=== PATIENT | female | born 1955 | race American Indian/Alaskan Native ===

== ENCOUNTER 2018-01-02 22:15 | Inpatient (IN) | payer MEDICAID ==
--- NOTE | 2018-01-02 22:43 | Cat Scan Report ---
FINAL REPORT PROCEDURE: CT HEAD/BRAIN WO CON TECHNIQUE: Computerized tomography of the head was performed without contrast material. HISTORY: CVA COMPARISON: No prior studies are available for comparison. FINDINGS: Skull and scalp: Normal. Paranasal sinuses: Normal. Ventricles and subarachnoid spaces: Normal. Cerebrum: Ill-defined hypodense lesions measuring about 1 centimeter are noted involving the anterior limbs of bilateral internal capsules. An acute intra-axial or extra-axial hemorrhage is not identified.. Cerebellum and brainstem: No evidence of hemorrhage, acute infarction or mass. Vasculature: Atherosclerotic calcification is noted involving bilateral vertebral and internal carotid arteries.. Comments: None. IMPRESSION: No acute intracranial hemorrhage. Ill-defined hypodense lesions of bilateral anterior limb internal capsules most likely represent subacute versus chronic infarcts.
[2018-01-02 23:05] LABS: Basophils # (Auto) 0.1 K/mm3 (0.0-0.1); Basophils % (Auto) 0.9 % (0.0-1.8); Eosinophils % (Auto) 0.3 % (0.0-4.3); Hematocrit 42.6 % (30.3-42.9); Hemoglobin 13.5 gm/dl (10.1-14.3); Lymphocytes # (Auto) 1.6 K/mm3 (1.2-5.4); Mean Corpuscular HGB Conc 32 % (30-34); Mean Corpuscular Hemoglobin 25 pg (28-32); Mean Corpuscular Volume 78 fl (79-97); Monocytes # (Auto) 0.4 K/mm3 (0.0-0.8); Monocytes % (Auto) 6.7 % (0.0-7.3); Platelet Count 275 K/mm3 (140-440); Red Blood Count 5.46 M/mm3 (3.65-5.03); Red Cell Distribution Width 16.8 % (13.2-15.2)
[2018-01-02 23:09] LABS: INR 0.97 (0.87-1.13)
[2018-01-02 23:10] LABS: Partial Thromboplastin Time 29.5 Sec. (24.2-36.6); Thrombin Time 16.5 Sec. (15.1-19.6)
[2018-01-02 23:18] LABS: Alanine Aminotransferase 12 units/L (7-56); Albumin 3.7 g/dL (3.9-5); BUN/Creatinine Ratio 13; Blood Urea Nitrogen 12 mg/dL (7-17); Hemolysis Index 0
[2018-01-03] LABS: Bilirubin,Urine NEG (Negative); Blood,Urine NEG (Negative); Color,Urine Yellow (Yellow); Nitrite,Urine NEG (Negative); Protein,Urine <15 mg/dL mg/dL (Negative); WBC,Urine < 1.0 /HPF (0.0-6.0)
[2018-01-03 00:10] LABS: Amphetamine Screen,Urine PRESUMPTIVE NEGATIVE; Benzodiazepines Screen,Urine PRESUMPTIVE NEGATIVE; Cannabinoid Screen,Urine PRESUMPTIVE NEGATIVE; Cocaine Screen,Urine PRESUMPTIVE NEGATIVE; Methadone Screen,Urine PRESUMPTIVE NEGATIVE; Opiate Screen,Urine PRESUMPTIVE NEGATIVE
[2018-01-03] MEDS ORDERED: NACL ONE (00:14)
--- NOTE | 2018-01-03 00:28 | Emergency Department Report ---
ED Altered Mental Status HPI - General Chief Complaint: Altered Mental Status Stated Complaint: POSS CVA Time Seen by Provider: 01/02/18 22:47 Source: patient, family, EMS Mode of arrival: Ambulatory Limitations: No Limitations - History of Present Illness Initial Comments: 62-year-old female history of hypertension and tobacco abuse family member states that she was noted to be last normal at about 1 PM today when he called her; when he returned home approximately 9 PM she was unable to respond his questions she was awake and alert but did have aphasia with difficulty getting responding, he called 911 patient was brought to the ED as a stroke protocol patient her last known normal time was 1 PM she presented at the ED at 2245. pt was sent to ct on stroke protocol on arrival. MD Complaint: altered mental status, confusion, other (poss cva) Severity: mild Consistency of Symptoms: unknown Associated Symptoms: diaphoresis, weakness. denies: chest pain, cough, malaise , nausea/vomiting, rash, seizure, shortness of breath, syncope - Related Data Home Medications Medication Instructions Recorded Confirmed Last Taken No Known Home Medications [No 01/02/18 01/02/18 Unknown Reported Home Medications] Allergies Allergy/AdvReac Type Severity Reaction Status Date / Time No Known Allergies Allergy Unverified 01/02/18 22:23 ED Review of Systems ROS: Stated complaint: POSS CVA Other details as noted in HPI Comment: All other systems reviewed and negative Constitutional: no symptoms reported, weakness. denies: chills, diaphoresis, fever Respiratory: no symptoms reported. denies: orthopnea, shortness of breath, SOB with exertion, SOB at rest, stridor, wheezing Cardiovascular: denies: chest pain, palpitations, dyspnea on exertion, orthopnea , edema, syncope, paroxysmal nocturnal dyspnea Gastrointestinal: denies: abdominal pain, nausea, vomiting, diarrhea, constipation, hematemesis, melena, hematochezia Neurological: weakness, confusion, other (aphasia, confusion). denies: headache ED Past Medical Hx - Medications Home Medications: Home Medications Medication Instructions Recorded Confirmed Last Taken Type No Known Home Medications [No 01/02/18 01/02/18 Unknown History Reported Home Medications] ED Physical Exam - General Limitations: No Limitations General appearance: alert, other (eyes open alert protecting airway receptive and expressive aphasia) - Head Head exam: Present: atraumatic, normocephalic - Eye Eye exam: Present: PERRL, other (uncooperative with exam) - ENT ENT exam: Present: normal exam, normal orophraynx - Neck Neck exam: Present: normal inspection. Absent: tenderness, meningismus, lymphadenopathy, thyromegaly - Respiratory Respiratory exam: Present: normal lung sounds bilaterally. Absent: respiratory distress, wheezes, rales, rhonchi, stridor, chest wall tenderness, accessory muscle use, decreased breath sounds, prolonged expiratory - Cardiovascular Cardiovascular Exam: Present: regular rate, tachycardia. Absent: systolic murmur, diastolic murmur, rubs, gallop - GI/Abdominal GI/Abdominal exam: Present: soft. Absent: distended, tenderness, guarding, rebound, rigid, mass, bruit, pulsatile mass - Extremities Exam Extremities exam: Absent: pedal edema, joint swelling, calf tenderness - Back Exam Back exam: Absent: CVA tenderness (L), muscle spasm, paraspinal tenderness, vertebral tenderness - Neurological Exam Neurological exam: Present: alert, motor sensory deficit, other (patient is verbal and not following commands expressive and receptive aphasia) - Assessment Assessment Interval: Baseline - Level of Consciousness 1a. Level of Consciousness: alert - LOC Questions 1b. LOC Questions: answers no questions correctly - LOC Command 1c. LOC Commands: performs no tasks correctly - Best Gaze 2. Best Gaze: normal - Visual 3. Visual: no visual loss - Facial Palsy 4. Facial Palsy: minor paralysis - Motor Arm 5b. Motor Arm Right: no drift 5a. Motor Arm Left: no drift - Motor Leg 6a. Motor Leg Left: no drift 6b. Motor Leg Right: no drift - Limb Ataxia 7. Limb Ataxia: present 1 limb - Sensory 8. Sensory: mild/moderate sensory loss - Best Language 9. Best Language: mild/moderate aphasia - Dysarthria 10. Dysarthria: mild/moderate dysarthria - Extinction and Inattention 11. Extinction/Inattention: profound inattention - Scoring Total Score: 11 Stroke Severity: Moderate Stroke ED Course Vital Signs 01/02/18 01/02/18 01/03/18 23:03 23:08 00:14 Temperature 98.3 F Pulse Rate 92 H 85 82 Respiratory 18 20 20 Rate Blood Pressure 171/106 126/88 [Left] O2 Sat by Pulse 98 96 98 Oximetry - Lab Data Result diagrams: 01/02/18 22:45 01/02/18 22:45 Lab Results 01/02/18 01/02/18 01/02/18 Range/Units 22:45 22:45 22:45 WBC 6.6 (4.5-11.0) K/mm3 RBC 5.46 H (3.65-5.03) M/mm3 Hgb 13.5 (10.1-14.3) gm/dl Hct 42.6 (30.3-42.9) % MCV 78 L (79-97) fl MCH 25 L (28-32) pg MCHC 32 (30-34) % RDW 16.8 H (13.2-15.2) % Plt Count 275 (140-440) K/mm3 Lymph % (Auto) 24.0 (13.4-35.0) % [place] % (Auto) 6.7 (0.0-7.3) % Eos % (Auto) 0.3 (0.0-4.3) % Baso % (Auto) 0.9 (0.0-1.8) % Lymph # 1.6 (1.2-5.4) K/mm3 [place]elia # 0.4 (0.0-0.8) K/mm3 Eos # 0.0 (0.0-0.4) K/mm3 Baso # 0.1 (0.0-0.1) K/mm3 Seg Neutrophils % 68.1 (40.0-70.0) % Seg Neutrophils # 4.5 (1.8-7.7) K/mm3 PT 13.4 (12.2-14.9) Sec. INR 0.97 (0.87-1.13) APTT 29.5 (24.2-36.6) Sec. Thrombin Time 16.5 (15.1-19.6) Sec. Sodium 138 (137-145) mmol/L Potassium 4.1 (3.6-5.0) mmol/L Chloride 99.1 (98-107) mmol/L Carbon Dioxide 24 (22-30) mmol/L Anion Gap 19 mmol/L BUN 12 (7-17) mg/dL Creatinine 0.9 (0.7-1.2) mg/dL Estimated GFR > 60 ml/min BUN/Creatinine Ratio 13 % Glucose 107 H (65-100) mg/dL Calcium 9.0 (8.4-10.2) mg/dL Total Bilirubin 0.30 (0.1-1.2) mg/dL AST 16 (5-40) units/L ALT 12 (7-56) units/L Alkaline Phosphatase 74 (35-129) units/L Troponin T < 0.010 (0.00-0.029) ng/mL Total Protein 7.4 (6.3-8.2) g/dL Albumin 3.7 L (3.9-5) g/dL Albumin/Globulin Ratio 1.0 % Urine Color (Yellow) Urine Turbidity (Clear) Urine pH (5.0-7.0) Ur Specific [place] (1.003-1.030) Urine Protein (Negative) mg/dL Urine Glucose (UA) (Negative) mg/dL Urine Ketones (Negative) mg/dL Urine Blood (Negative) Urine Nitrite (Negative) Urine Bilirubin (Negative) Urine Urobilinogen (<2.0) mg/dL Ur Leukocyte Esterase (Negative) Urine WBC (Auto) (0.0-6.0) /HPF Urine RBC (Auto) (0.0-6.0) /HPF U Epithel Cells (Auto) (0-13.0) /HPF Urine Opiates Screen Urine Methadone Screen Ur Barbiturates Screen Ur Phencyclidine Scrn Ur Amphetamines Screen U Benzodiazepines Scrn Urine Cocaine Screen U Marijuana (THC) Screen 01/02/18 01/02/18 Range/Units 22:59 22:59 WBC (4.5-11.0) K/mm3 RBC (3.65-5.03) M/mm3 Hgb (10.1-14.3) gm/dl Hct (30.3-42.9) % MCV (79-97) fl MCH (28-32) pg MCHC (30-34) % RDW (13.2-15.2) % Plt Count (140-440) K/mm3 Lymph % (Auto) (13.4-35.0) % [place] % (Auto) (0.0-7.3) % Eos % (Auto) (0.0-4.3) % Baso % (Auto) (0.0-1.8) % Lymph # (1.2-5.4) K/mm3 [place]elia # (0.0-0.8) K/mm3 Eos # (0.0-0.4) K/mm3 Baso # (0.0-0.1) K/mm3 Seg Neutrophils % (40.0-70.0) % Seg Neutrophils # (1.8-7.7) K/mm3 PT (12.2-14.9) Sec. INR (0.87-1.13) APTT (24.2-36.6) Sec. Thrombin Time (15.1-19.6) Sec. Sodium (137-145) mmol/L Potassium (3.6-5.0) mmol/L Chloride (98-107) mmol/L Carbon Dioxide (22-30) mmol/L Anion Gap mmol/L BUN (7-17) mg/dL Creatinine (0.7-1.2) mg/dL Estimated GFR ml/min BUN/Creatinine Ratio % Glucose (65-100) mg/dL Calcium (8.4-10.2) mg/dL Total Bilirubin (0.1-1.2) mg/dL AST (5-40) units/L ALT (7-56) units/L Alkaline Phosphatase (35-129) units/L Troponin T (0.00-0.029) ng/mL Total Protein (6.3-8.2) g/dL Albumin (3.9-5) g/dL Albumin/Globulin Ratio % Urine Color Yellow (Yellow) Urine Turbidity Clear (Clear) Urine pH 7.0 (5.0-7.0) Ur Specific [place] 1.013 (1.003-1.030) Urine Protein <15 mg/dl (Negative) mg/dL Urine Glucose (UA) Neg (Negative) mg/dL Urine Ketones Neg (Negative) mg/dL Urine Blood Neg (Negative) Urine Nitrite Neg (Negative) Urine Bilirubin Neg (Negative) Urine Urobilinogen 4.0 (<2.0) mg/dL Ur Leukocyte Esterase Neg (Negative) Urine WBC (Auto) < 1.0 (0.0-6.0) /HPF Urine RBC (Auto) 2.0 (0.0-6.0) /HPF U Epithel Cells (Auto) < 1.0 (0-13.0) /HPF Urine Opiates Screen Presumptive negative Urine Methadone Screen Presumptive negative Ur Barbiturates Screen Presumptive negative Ur Phencyclidine Scrn Presumptive negative Ur Amphetamines Screen Presumptive negative U Benzodiazepines Scrn Presumptive negative Urine Cocaine Screen Presumptive negative U Marijuana (THC) Screen Presumptive negative - EKG Data -: EKG Interpreted by Me EKG shows normal: sinus rhythm When compared to previous EKG there are: previous EKG unavailable Interpretation: nonspecific ST-T wave belen, other (right bundle-branch block) - Radiology Data Radiology results: report reviewed Subacute versus chronic change in internal capsule - Medical Decision Making No old EKGs are available patient does have a sinus tach at 105 with a right bundle branch block., case was d/w dr armando of tele neurology who rec no rx for elev bp unless sbp>200, she rec. cta head/neck and admit. ssx are c/w tia/ cva, ? if sx are improving in ed, ct shows likely infarct to internal capsule, case d/w hospitalist for admit. pt will likely need transfer to interventionalist if any blockages noted on cta and hospitalist aware.who will admit pt for further eval or possible transfer to [place] if blockages present.pt is protecting her airway w/ nl pox and is alert but confused adn aphasic. - Differential Diagnosis cva,tia Critical care attestation.: If time is entered above; I have spent that time in minutes in the direct care of this critically ill patient, excluding procedure time. ED Disposition Clinical Impression: Aphasia, CVA (cerebral vascular accident) Disposition: -09 OP ADMIT IP TO THIS HOSP Is pt being admited?: Yes Condition: Stable Referrals: HERBER BAIRD MD [Primary Care Provider] - 3-5 Days Time of Disposition: 00:50
--- NOTE | 2018-01-03 01:26 | Cat Scan Report ---
FINAL REPORT EXAM: CT ANGIO HEAD HISTORY: stroke sx TECHNIQUE: A CT angiogram was obtained of the brain following the intravenous injection of 100 cc of Omnipaque 350. Rotational, sagittal and coronal MIP reconstructions were reviewed FINDINGS: In the posterior circulation both vertebral arteries are widely patent along with the basilar artery. Both posterior cerebral arteries are widely patent. They region 8 off of the anterior circulation compatible with origin. In the anterior circulation both internal carotid arteries are widely patent with normal bifurcation into the anterior and middle cerebral arteries bilaterally. There is no evidence of arterial stenosis, thrombosis, or aneurysm. The dural venous sinuses are not adequately seen for evaluation. IMPRESSION: Normal CT angiogram of the brain. No evidence of arterial stenosis, thrombosis, or aneurysm.
--- NOTE | 2018-01-03 05:43 | History and Physical Report ---
History of Present Illness Date of examination: 01/03/18 Chief complaint: altered mental status, confusion, other (poss cva) History of present illness: 62-year-old female history of hypertension and tobacco abuse family member states that she was noted to be last normal at about 1 PM today when he called her; when he returned home approximately 9 PM she was unable to respond his questions she was awake and alert but did have aphasia with difficulty getting responding, he called 911 patient was brought to the ED as a stroke protocol patient her last known normal time was 1 PM she presented at the ED at 2245. pt was sent to ct on stroke protocol on arrival. Medications and Allergies Allergies Allergy/AdvReac Type Severity Reaction Status Date / Time No Known Allergies Allergy Verified 01/03/18 01:57 Home Medications Medication Instructions Recorded Confirmed Last Taken Type No Known Home Medications [No 01/02/18 01/02/18 Unknown History Reported Home Medications] Exam - Physical Exam Narrative exam: General: the patient is somnolent but arousable very confused talking bed not answering questions appropriately following simple commands but not consistently. no evidence of acute distress HEENT: Head is atraumatic normocephalic,. Pupils equal round reactive to light and accommodation, extraocular movements intact. Oral mucosa moist. Oropharynx clear. No pharyngeal erythema or tonsillar exudate. Neck: Supple no JVD no thyromegaly or lymphadenopathy. Heart: Regular rate and rhythm no murmurs or gallops. S1 and S2 normal. PMI not displaced. Lungs: Clear to auscultation bilaterally. No rales rhonchi wheezing. Nonlabored breathing. Normal chest wall expansion. Abdomen: Soft, nondistended, and nontender. Normoactive bowel sounds. No hepatosplenomegaly. No abdominal masses or bruit appreciated. Extremities: No cyanosis/clubbing/ edema. Musculoskeletal: Normal range of movement all joints. No obvious deformity or tenderness to palpation. Normal muscle tone. Back: Normal alignment. No step-off. No midline or paraspinal tenderness. No CVA tenderness. Neurological: Grossly intact and nonfocal. Limited exam due to altered mental status but appears to be grossly intact and nonfocal moving all 4 extremities equally bilaterally. No cerebellar signs. Cranial nerves II-12 grossly intact. Strength 5 out of 5 all 4 extremities. Sensations grossly intact. Skin: Warm and dry no rashes or bruises. Psychiatric: Normal mood. Appropriate affect and good insight and judgment. Vascular system: No lymphadenopathy. Distal pulses 2+ bilaterally. - Constitutional Vitals: Temp Pulse Resp BP Pulse Ox 98.3 F 77 25 H 134/82 93 01/02/18 23:08 01/03/18 04:00 01/03/18 04:00 01/03/18 04:00 01/03/18 04:00 Results - Labs CBC & Chem 7: 01/02/18 22:45 01/02/18 22:45 Labs: Laboratory Last Values WBC 6.6 K/mm3 (4.5-11.0) 01/02/18 22:45 RBC 5.46 M/mm3 (3.65-5.03) H 01/02/18 22:45 Hgb 13.5 gm/dl (10.1-14.3) 01/02/18 22:45 Hct 42.6 % (30.3-42.9) 01/02/18 22:45 MCV 78 fl (79-97) L 01/02/18 22:45 MCH 25 pg (28-32) L 01/02/18 22:45 MCHC 32 % (30-34) 01/02/18 22:45 RDW 16.8 % (13.2-15.2) H 01/02/18 22:45 Plt Count 275 K/mm3 (140-440) 01/02/18 22:45 Lymph % (Auto) 24.0 % (13.4-35.0) 01/02/18 22:45 [place] % (Auto) 6.7 % (0.0-7.3) 01/02/18 22:45 Eos % (Auto) 0.3 % (0.0-4.3) 01/02/18 22:45 Baso % (Auto) 0.9 % (0.0-1.8) 01/02/18 22:45 Lymph # 1.6 K/mm3 (1.2-5.4) 01/02/18 22:45 [place] # 0.4 K/mm3 (0.0-0.8) 01/02/18 22:45 Eos # 0.0 K/mm3 (0.0-0.4) 01/02/18 22:45 Baso # 0.1 K/mm3 (0.0-0.1) 01/02/18 22:45 Seg Neutrophils % 68.1 % (40.0-70.0) 01/02/18 22:45 Seg Neutrophils # 4.5 K/mm3 (1.8-7.7) 01/02/18 22:45 PT 13.4 Sec. (12.2-14.9) 01/02/18 22:45 INR 0.97 (0.87-1.13) 01/02/18 22:45 APTT 29.5 Sec. (24.2-36.6) 01/02/18 22:45 Thrombin Time 16.5 Sec. (15.1-19.6) 01/02/18 22:45 Sodium 138 mmol/L (137-145) 01/02/18 22:45 Potassium 4.1 mmol/L (3.6-5.0) 01/02/18 22:45 Chloride 99.1 mmol/L (98-107) 01/02/18 22:45 Carbon Dioxide 24 mmol/L (22-30) 01/02/18 22:45 Anion Gap 19 mmol/L 01/02/18 22:45 BUN 12 mg/dL (7-17) 01/02/18 22:45 Creatinine 0.9 mg/dL (0.7-1.2) 01/02/18 22:45 Estimated GFR > 60 ml/min 01/02/18 22:45 BUN/Creatinine Ratio 13 % 01/02/18 22:45 Glucose 107 mg/dL (65-100) H 01/02/18 22:45 Calcium 9.0 mg/dL (8.4-10.2) 01/02/18 22:45 Total Bilirubin 0.30 mg/dL (0.1-1.2) 01/02/18 22:45 AST 16 units/L (5-40) 01/02/18 22:45 ALT 12 units/L (7-56) 01/02/18 22:45 Alkaline Phosphatase 74 units/L (35-129) 01/02/18 22:45 Troponin T < 0.010 ng/mL (0.00-0.029) 01/02/18 22:45 Total Protein 7.4 g/dL (6.3-8.2) 01/02/18 22:45 Albumin 3.7 g/dL (3.9-5) L 01/02/18 22:45 Albumin/Globulin Ratio 1.0 % 01/02/18 22:45 Urine Color Yellow (Yellow) 01/02/18 22:59 Urine Turbidity Clear (Clear) 01/02/18 22:59 Urine pH 7.0 (5.0-7.0) 01/02/18 22:59 Ur Specific [place] 1.013 (1.003-1.030) 01/02/18 22:59 Urine Protein <15 mg/dl mg/dL (Negative) 01/02/18 22:59 Urine Glucose (UA) Neg mg/dL (Negative) 01/02/18 22:59 Urine Ketones Neg mg/dL (Negative) 01/02/18 22:59 Urine Blood Neg (Negative) 01/02/18 22:59 Urine Nitrite Neg (Negative) 01/02/18 22:59 Urine Bilirubin Neg (Negative) 01/02/18 22:59 Urine Urobilinogen 4.0 mg/dL (<2.0) 01/02/18 22:59 Ur Leukocyte Esterase Neg (Negative) 01/02/18 22:59 Urine WBC (Auto) < 1.0 /HPF (0.0-6.0) 01/02/18 22:59 Urine RBC (Auto) 2.0 /HPF (0.0-6.0) 01/02/18 22:59 U Epithel Cells (Auto) < 1.0 /HPF (0-13.0) 01/02/18 22:59 Urine Opiates Screen Presumptive negative 01/02/18 22:59 Urine Methadone Screen Presumptive negative 01/02/18 22:59 Ur Barbiturates Screen Presumptive negative 01/02/18 22:59 Ur Phencyclidine Scrn Presumptive negative 01/02/18 22:59 Ur Amphetamines Screen Presumptive negative 01/02/18 22:59 U Benzodiazepines Scrn Presumptive negative 01/02/18 22:59 Urine Cocaine Screen Presumptive negative 01/02/18 22:59 U Marijuana (THC) Screen Presumptive negative 01/02/18 22:59 Drugs of Abuse Note Disclamer 01/02/18 22:59 - Imaging and Cardiology Imaging and Cardiology: Head CT without contrast showing ill-defined hypodense lesions measuring about 1 cm involving the anterior limbs of bilateral internal capsules. But under the impression there is no acute intracranial hemorrhage CTA head and neck showing normal CT angiogram of the brain no evidence of arterial stenosis thrombosis or aneurysm Assessment and Plan Assessment and plan: Assessment and plan - * Altered mental status confusion * Slurred speech - possible TIA versus CVA * Abnormal CT head showing abnormal areas but negative CTA of the head and neck * Hypertension * Tobacco abuse Plan - Admitted to medical floor with telemetry for 24-hour observation MRI of the brain Carotid ultrasound Echocardiogram Aspirin 325 mg daily Optimal blood pressure control, continue home meds and give when necessary hydralazine Monitor CBC and electrolytes Replace electrolytes. As per protocol DVT GI prophylaxis as ordered Monitor and follow the patient closely
[2018-01-03] MEDS ORDERED: TYLENOL PO PRN (05:45)
[2018-01-03] MEDS ORDERED: DULCOLAX PR PRN (05:45)
[2018-01-03] MEDS ORDERED: PROVENTIL IH PRN (05:45)
[2018-01-03] MEDS ORDERED: SODIUM CHLORIDE FLUSH SYRINGE 10 ML IV PRN (05:45)
[2018-01-03] MEDS ORDERED: MILK OF MAGNESIA PO PRN (05:45)
[2018-01-03] MEDS ORDERED: APRESOLINE IV PRN (05:45)
[2018-01-03] MEDS ORDERED: ZOFRAN IV PRN (05:45)
[2018-01-03] MEDS ORDERED: MORPHINE IV PRN (06:01)
[2018-01-03 06:34] LABS: Basophils % (Auto) 0.7 % (0.0-1.8); Eosinophils % (Auto) 0.8 % (0.0-4.3); Hemoglobin 12.8 gm/dl (10.1-14.3); Lymphocytes # (Auto) 1.4 K/mm3 (1.2-5.4); Lymphocytes % (Auto) 26.6 % (13.4-35.0); Mean Corpuscular HGB Conc 32 % (30-34); Mean Corpuscular Volume 77 fl (79-97); Monocytes # (Auto) 0.5 K/mm3 (0.0-0.8); Monocytes % (Auto) 9.6 % (0.0-7.3); Platelet Count 252 K/mm3 (140-440); Red Blood Count 5.18 M/mm3 (3.65-5.03); Red Cell Distribution Width 16.7 % (13.2-15.2)
[2018-01-03 06:39] LABS: Mean Corpuscular Hemoglobin 25 pg (28-32)
[2018-01-03 06:49] LABS: Alanine Aminotransferase 10 units/L (7-56); Albumin 3.5 g/dL (3.9-5); BUN/Creatinine Ratio 14; Blood Urea Nitrogen 11 mg/dL (7-17); Calcium 8.8 mg/dL (8.4-10.2); Chol/HDL Ratio 4.85 %; HDL Cholesterol 40 mg/dL (40-59); Hemolysis Index 7; LDL Cholesterol,Direct 130 mg/dL (50-130)
[2018-01-03 06:56] LABS: INR 0.98 (0.87-1.13)
[2018-01-03 06:57] LABS: Partial Thromboplastin Time 29.7 Sec. (24.2-36.6)
--- NOTE | 2018-01-03 07:34 | Cat Scan Report ---
FINAL REPORT EXAM: CT ANGIO NECK HISTORY: stroke sx TECHNIQUE: A CT angiogram was performed of the neck following the intravenous injection of 100 cc of Omnipaque 350. Rotational, sagittal and coronal reconstructions were obtained. FINDINGS: Both vertebral arteries are widely patent with the left being dominant. There is no evidence of ostial stenosis at the origin of the vertebral arteries coming off the subclavian arteries. Both common carotid arteries are widely patent. On the left side there is calcified eccentric plaque at the origin of the internal carotid artery accounting for a 10-20 percent stenosis. There is a very small incomplete dissection flap just above this calcification extending 2.2 cm in length. The left internal carotid artery above this is unremarkable The right common carotid artery reveals eccentric plaque formation at the origin of the internal carotid artery. There is artifact at this level. A definite dissection flap is not seen. The degree of stenosis is 10-20 percent. The airway appears normal. The lung apices are clear. The thyroid gland appears normal. The skeletal structures reveal multilevel disc degeneration in the cervical spine IMPRESSION: Bilateral 10-20 percent stenoses of both proximal internal carotid arteries by eccentric calcific plaque formation. 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 Distal to this the artery is unremarkable. Bilateral patent vertebral arteries with the left being dominant. No evidence of lymphadenopathy or acute process in the neck otherwise.
[2018-01-03] MEDS ORDERED: LOVENOX SUB-Q SCH (10:00)
[2018-01-03] MEDS ORDERED: HEPARIN 10,000 UNITS/10 ML IV ONE (10:40)
[2018-01-03] MEDS ORDERED: HEPARIN 25,000 UNIT in D5W 497.5 ML IV SCH (11:00)
[2018-01-03] MEDS: PEPCID IV SCH ×2 (11:16→21:33)
[2018-01-03] MEDS: ASPIRIN PO SCH (11:16)
--- NOTE | 2018-01-03 12:41 | Progress Note ---
Assessment and Plan Assessment and plan: Patient is a 62-year-old woman with a history of hypertension and tobacco dependency who presented to [facility] ED with altered mental status (first visit here ), she was out the window of TPA per ED physician documentation CT head w/o contrast reported as No acute intracranial hemorrhage. Ill-defined hypodense lesions of bilateral anterior limb internal capsules most likely represent subacute versus chronic infarcts. CTA head reported as Normal CT angiogram of the brain. No evidence of arterial stenosis, thrombosis, or aneurysm. CTA neck Bilateral 10-20 percent stenoses of both proximal internal carotid arteries by eccentric calcific plaque formation. 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 Distal to this the artery is unremarkable. Bilateral patent vertebral arteries with the left being dominant. No evidence of lymphadenopathy or acute process in the neck otherwise. Carotid Bilateral duplex reported as <50% STENOSIS NOTED BILAT BY DOPPLER VELOCITIES. BILAT ANTEG VERT FLOWS. POSSIBLE ULCERATIVE PLAQUE NOTED IN LT. PX ICA. -Acute cerebral infarct: Consult neurology, ordered MRI brain -Left carotid artery dissection: Discussed with vascular surgeon, treated with IV heparin -Acute metabolic encephalopathy as above -Tobacco dependency: Treated with nicotine patch History Interval history: Patient was seen and examined. Follow-up on current diagnosis of altered mental status which is still present. Imaging, nursing note, chart, labs and old chart reviewed. Patient's nurse called me aroung 8 AM to report that radiologist called to report a 2.2 cm dissection of carotid artery. I called Dr. Mcintosh, vascular surgeon on his cell phone to discuss case. Hospitalist Physical - Physical exam Narrative exam: GEN: WDWN, NAD, AWAKE, ALERT, ORIENTATED 0, repeat "I don't know"over and over HEENT: NCAT, EOMI, PERRL, OP Clear NECK: supple, no adenopathy, no thyromegaly, no JVD CVS/HEART: RRR, NORMAL S1S2, pulses present bilaterally CHEST/LUNGS: CTA B, Symmetrical chest expansion, good air entry bilaterally GI/Abdomen: soft, NTND, good bowel sounds, no guarding or rebound /Bladder: no suprapubic tenderness, no CVA or paraspinal tenderness EXT/Skin: no c/c/e, no obvious rash MSK: Moving all limbs 4 Neuro: CN 2-12 grossly intact, expressive aphasia, follow some commands Psych: calm - Constitutional Vitals: Temp Pulse Resp BP Pulse Ox 98.6 F 87 24 138/87 98 01/03/18 08:00 01/03/18 11:45 01/03/18 11:45 01/03/18 11:45 01/03/18 12:22 Results - Labs CBC & Chem 7: 01/03/18 06:07 01/03/18 06:07 Labs: Laboratory Last Values WBC 5.4 K/mm3 (4.5-11.0) 01/03/18 06:07 RBC 5.18 M/mm3 (3.65-5.03) H 01/03/18 06:07 Hgb 12.8 gm/dl (10.1-14.3) 01/03/18 06:07 Hct 40.0 % (30.3-42.9) 01/03/18 06:07 MCV 77 fl (79-97) L 01/03/18 06:07 MCH 25 pg (28-32) L 01/03/18 06:07 MCHC 32 % (30-34) 01/03/18 06:07 RDW 16.7 % (13.2-15.2) H 01/03/18 06:07 Plt Count 252 K/mm3 (140-440) 01/03/18 06:07 Lymph % (Auto) 26.6 % (13.4-35.0) 01/03/18 06:07 Anderson % (Auto) 9.6 % (0.0-7.3) H 01/03/18 06:07 Eos % (Auto) 0.8 % (0.0-4.3) 01/03/18 06:07 Baso % (Auto) 0.7 % (0.0-1.8) 01/03/18 06:07 Lymph # 1.4 K/mm3 (1.2-5.4) 01/03/18 06:07 Anderson # 0.5 K/mm3 (0.0-0.8) 01/03/18 06:07 Eos # 0.0 K/mm3 (0.0-0.4) 01/03/18 06:07 Baso # 0.0 K/mm3 (0.0-0.1) 01/03/18 06:07 Seg Neutrophils % 62.3 % (40.0-70.0) 01/03/18 06:07 Seg Neutrophils # 3.3 K/mm3 (1.8-7.7) 01/03/18 06:07 PT 13.5 Sec. (12.2-14.9) 01/03/18 06:07 INR 0.98 (0.87-1.13) 01/03/18 06:07 APTT 29.7 Sec. (24.2-36.6) 01/03/18 06:07 Thrombin Time 16.5 Sec. (15.1-19.6) 01/02/18 22:45 Sodium 142 mmol/L (137-145) 01/03/18 06:07 Potassium 3.8 mmol/L (3.6-5.0) 01/03/18 06:07 Chloride 100.4 mmol/L (98-107) 01/03/18 06:07 Carbon Dioxide 24 mmol/L (22-30) 01/03/18 06:07 Anion Gap 21 mmol/L 01/03/18 06:07 BUN 11 mg/dL (7-17) 01/03/18 06:07 Creatinine 0.8 mg/dL (0.7-1.2) 01/03/18 06:07 Estimated GFR > 60 ml/min 01/03/18 06:07 BUN/Creatinine Ratio 14 % 01/03/18 06:07 Glucose 86 mg/dL (65-100) 01/03/18 06:07 Hemoglobin A1c 6.0 % (4-6) 01/03/18 06:07 Calcium 8.8 mg/dL (8.4-10.2) 01/03/18 06:07 Transferrin 223 mg/dl (192-382) 01/03/18 06:07 Ferritin 143.5 ng/mL (13.0-400.0) 01/03/18 06:07 Total Bilirubin 0.30 mg/dL (0.1-1.2) 01/03/18 06:07 AST 15 units/L (5-40) 01/03/18 06:07 ALT 10 units/L (7-56) 01/03/18 06:07 Alkaline Phosphatase 70 units/L (35-129) 01/03/18 06:07 Troponin T < 0.010 ng/mL (0.00-0.029) 01/02/18 22:45 Total Protein 7.3 g/dL (6.3-8.2) 01/03/18 06:07 Albumin 3.5 g/dL (3.9-5) L 01/03/18 06:07 Albumin/Globulin Ratio 0.9 % 01/03/18 06:07 Triglycerides 122 mg/dL (2-149) 01/03/18 06:07 Cholesterol 194 mg/dL (50-199) 01/03/18 06:07 LDL Cholesterol Direct 130 mg/dL (50-130) 01/03/18 06:07 HDL Cholesterol 40 mg/dL (40-59) 01/03/18 06:07 Cholesterol/HDL Ratio 4.85 % 01/03/18 06:07 Vitamin B12 690.1 pg/mL (211-911) 01/03/18 06:07 Folate 18.42 ng/mL (7.3-26.0) 01/03/18 06:07 TSH 1.200 mlU/mL (0.270-4.200) 01/03/18 06:07 Urine Color Yellow (Yellow) 01/02/18 22:59 Urine Turbidity Clear (Clear) 01/02/18 22:59 Urine pH 7.0 (5.0-7.0) 01/02/18 22:59 Ur Specific [place] 1.013 (1.003-1.030) 01/02/18 22:59 Urine Protein <15 mg/dl mg/dL (Negative) 01/02/18 22:59 Urine Glucose (UA) Neg mg/dL (Negative) 01/02/18 22:59 Urine Ketones Neg mg/dL (Negative) 01/02/18 22:59 Urine Blood Neg (Negative) 01/02/18 22:59 Urine Nitrite Neg (Negative) 01/02/18 22:59 Urine Bilirubin Neg (Negative) 01/02/18 22:59 Urine Urobilinogen 4.0 mg/dL (<2.0) 01/02/18 22:59 Ur Leukocyte Esterase Neg (Negative) 01/02/18 22:59 Urine WBC (Auto) < 1.0 /HPF (0.0-6.0) 01/02/18 22:59 Urine RBC (Auto) 2.0 /HPF (0.0-6.0) 01/02/18 22:59 U Epithel Cells (Auto) < 1.0 /HPF (0-13.0) 01/02/18 22:59 Urine Opiates Screen Presumptive negative 01/02/18 22:59 Urine Methadone Screen Presumptive negative 01/02/18 22:59 Ur Barbiturates Screen Presumptive negative 01/02/18 22:59 Ur Phencyclidine Scrn Presumptive negative 01/02/18 22:59 Ur Amphetamines Screen Presumptive negative 01/02/18 22:59 U Benzodiazepines Scrn Presumptive negative 01/02/18 22:59 Urine Cocaine Screen Presumptive negative 01/02/18 22:59 U Marijuana (THC) Screen Presumptive negative 01/02/18 22:59 Drugs of Abuse Note Disclamer 01/02/18 22:59
[2018-01-03] MEDS: HEPARIN/ 0.45% NACL-25,000 UNIT/500 ML 25,000 UNIT/500 ML BAG IV SCH (13:21)
[2018-01-03 13:28] LABS: % Iron Saturation 14.23 %
[2018-01-03 13:40] LABS: Hematocrit 39.4 % (30.3-42.9); Hemoglobin 12.7 gm/dl (10.1-14.3)
[2018-01-03 13:54] LABS: INR 0.97 (0.87-1.13)
[2018-01-03 13:55] LABS: Partial Thromboplastin Time 30.4 Sec. (24.2-36.6)
--- NOTE | 2018-01-03 14:44 | Consultation ---
History of Present Illness Consult date: 12/19/17 Requesting physician: ELIZABET YOUNG Reason for Consult: left hemisphere stroke History of present illness: 62 year old female with history of smoking about 50 years and hypertension, on no meds at home. Presented last night to ER with aphasia. A relative spoke to her around 1 pm on 01/02 and her speech was normal. When he returned home, she was unable to speak and appeared confused. EMS was called and she was brought to ER. There is no history of weakness, numbness, ataxia, difficulty swallowing. There was no report of chest pain, palpitations, nausea, diaphoresis. CT brain suggestive of ischemic changes in internal capsule. CTA neck with calcified plaque in left internal carotid, with 2 cm dissection above it. nosis is at 10 to 20% Today the patient continues drowsy but easily arousable. family feels her speech is not much better. Past History Past Medical History: hypertension Social history: , lives with family, smoking. denies: alcohol abuse Family history: CAD, cancer (Both parents in their 50's of cardiac disease. ) Medications and Allergies Allergies Allergy/AdvReac Type Severity Reaction Status Date / Time No Known Allergies Allergy Verified 01/03/18 01:57 Home Medications Medication Instructions Recorded Confirmed Last Taken Type No Known Home Medications [No 01/02/18 01/02/18 Unknown History Reported Home Medications] Active Meds: Active Medications Acetaminophen (Tylenol) 650 mg PO Q4H PRN PRN Reason: Pain MILD(1-3)/Fever >100.5/GILMAN Albuterol (Proventil) 2.5 mg IH Q4HRT PRN PRN Reason: Shortness Of Breath Aspirin (Aspirin) 325 mg PO QDAY [facility] Last Admin: 01/03/18 11:16 Dose: 325 mg Bisacodyl (Dulcolax) 10 mg [place] QDAY PRN PRN Reason: Constipation unrelieved by MOM Famotidine (Pepcid) 20 mg IV BID [facility] Last Admin: 01/03/18 11:16 Dose: 20 mg Hydralazine HCl (Apresoline) 10 mg IV Q6H PRN PRN Reason: Hypertension Sodium Chloride (Nacl 0.45% 1000 Ml) 1,000 mls @ 125 mls/hr IV DIRECT [facility] Heparin Sodium/Sodium Chloride (Heparin/ 0.45% Nacl-25,000 Unit/500 Ml) 25,000 unit in 500 mls @ 20 mls/hr IV TITRATE MARIZA; 1,000 UNITS/HR PRN Reason: Protocol Last Admin: 01/03/18 13:21 Dose: 1,000 units/hr, 20 mls/hr Magnesium Hydroxide (Milk Of Magnesia) 30 ml PO Q4H PRN PRN Reason: Constipation Morphine Sulfate (Morphine) 2 mg IV Q4H PRN PRN Reason: Pain, Moderate (4-6) Ondansetron HCl (Zofran) 4 mg IV Q8H PRN PRN Reason: N/V unrelieved by Reglan Sodium Chloride (Sodium Chloride Flush Syringe 10 Ml) 10 ml IV PRN PRN PRN Reason: LINE FLUSH Review of Systems Constitutional: no anorexia, no weakness, no chronic headaches, no poor appetite , no chronic pain Ears, nose, mouth and throat: no ear pain, no decreased hearing, no nasal congestion, no sinus pain Cardiovascular: no chest pain, no orthopnea, no palpitations, no rapid/ irregular heart beat, no edema, no syncope, no lightheadedness, no shortness of breath Respiratory: no cough, no shortness of breath Gastrointestinal: no abdominal pain, no nausea, no vomiting, no diarrhea, no constipation Genitourinary Female: no dysuria, no urinary frequency Musculoskeletal: no neck stiffness, no neck pain Integumentary: no rash, no pruritis Neurological: aphasia, change in speech, change in mentation, no transient paralysis, no paralysis, no weakness, no parathesias, no numbness, no tingling, no syncope, no ataxia, no lack of coordination, no vertigo, no headaches, no gait dysfunction Physical Examination - Vital Signs Vital Signs: Vital Signs Pulse Resp 89 15 01/02/18 22:38 01/02/18 22:38 - Physical Exam Narrative exam: HEENT - normocephalic. eyes closed but opens on command. minimal speech. pupils perrla. moist membranes. no inflammation. Chest - clear to auscultation. Heart - reg. rate. nl. S-1, S-2. Abdomen - soft, nontender. Extremities - w/o CCE. Neurological - occasionally responds with one or two simple words that are fluent. follows commands and answers questions with nod or shake of her head. CN's - EOMs full. face symmetric, V-1 thru V-3 intact. hearing intact. tongue midline. Motor- 5/5 bilaterally, symmetric. Reflexes - +1 throughout. Sensory - intact to touch and pain Cerebellar - fine finger movements and rapd alternating movements she did well. She could not do finger to nose. Results - Laboratory Findings CBC and BMP: 01/03/18 13:18 01/03/18 06:07 Abnormal Lab Findings: Abnormal Labs 01/02/18 01/02/18 01/03/18 22:45 22:45 06:07 RBC 5.46 H 5.18 H MCV 78 L 77 L MCH 25 L 25 L RDW 16.8 H 16.7 H Sharkey % (Auto) 9.6 H Glucose 107 H Albumin 3.7 L 01/03/18 06:07 RBC MCV MCH RDW Sharkey % (Auto) Glucose Albumin 3.5 L CTA - with patent carotid arteries, 20 % stenosis at ICA bilaterally. The left ICA has a calcified plaque with dissection above it. CT - difficult to interpret. Possible ischemic changes in internal capsules bilaterally. Assessment and Plan 62 year old female with hypertension and smoking history, new onset fluent aphasia yesterday. Evidence of vascular disease on CTA. CT scan does not fit the clinical picture. Suspect a stroke in the temporal-parietal speech area. Statistically when one looks at strokes involving speech only they are more often cardioembolic. MRI brain is pending as is echocardiogrm. Agree with heparinization. Vascular surgery also being consulted. Plan - as outlined.
--- NOTE | 2018-01-03 16:45 | Consultation ---
History of Present Illness - Reason for Consult Consult date: 01/03/18 - History of Present Illness This patient is a 62-year-old -[place] female that was admitted on 01/03 due to altered mental status concerning for possible CVA. She apparently was in her normal state of health earlier in the day, but was unable to speak when her arrived home 8 hours later. He called 911 and she was taken to the emergency room where she has since been evaluated. She is not felt to be an appropriate candidate for TPA given the unknown timing of her neurologic event. A CT angiogram was ordered, which revealed an area of "arterial dissection in the proximal left internal carotid artery just above the bifurcation extending 2.2 cm in length". A Vascular surgery consult has been requested to further evaluate. She had a CT scan which showed no acute intracranial hemorrhage. There was an ill-defined hypodensity of the bilateral anterior limb internal capsule felt likely to represent subacute versus chronic infarctions. An MRI has been ordered and completed, but yet to be interpreted. The patient is unable to provide any history as she is currently aphasic. The History has been taken from the medical record. Past History Past Medical History: hypertension Social history: , lives with family, smoking. denies: alcohol abuse Family history: CAD, cancer (Both parents in their 50's of cardiac disease. ) Medications and Allergies Allergies Allergy/AdvReac Type Severity Reaction Status Date / Time No Known Allergies Allergy Verified 01/03/18 01:57 Home Medications Medication Instructions Recorded Confirmed Last Taken Type No Known Home Medications [No 01/02/18 01/02/18 Unknown History Reported Home Medications] Active Meds: Active Medications Acetaminophen (Tylenol) 650 mg PO Q4H PRN PRN Reason: Pain MILD(1-3)/Fever >100.5/GILMAN Albuterol (Proventil) 2.5 mg IH Q4HRT PRN PRN Reason: Shortness Of Breath Aspirin (Aspirin) 325 mg PO QDAY [facility] Last Admin: 01/03/18 11:16 Dose: 325 mg Bisacodyl (Dulcolax) 10 mg [place] QDAY PRN PRN Reason: Constipation unrelieved by MOM Famotidine (Pepcid) 20 mg IV BID [facility] Last Admin: 01/03/18 11:16 Dose: 20 mg Hydralazine HCl (Apresoline) 10 mg IV Q6H PRN PRN Reason: Hypertension Sodium Chloride (Nacl 0.45% 1000 Ml) 1,000 mls @ 125 mls/hr IV DIRECT MARIZA Heparin Sodium/Sodium Chloride (Heparin/ 0.45% Nacl-25,000 Unit/500 Ml) 25,000 unit in 500 mls @ 20 mls/hr IV TITRATE MARIZA; 1,000 UNITS/HR PRN Reason: Protocol Last Admin: 01/03/18 13:21 Dose: 1,000 units/hr, 20 mls/hr Magnesium Hydroxide (Milk Of Magnesia) 30 ml PO Q4H PRN PRN Reason: Constipation Morphine Sulfate (Morphine) 2 mg IV Q4H PRN PRN Reason: Pain, Moderate (4-6) Ondansetron HCl (Zofran) 4 mg IV Q8H PRN PRN Reason: N/V unrelieved by Reglan Sodium Chloride (Sodium Chloride Flush Syringe 10 Ml) 10 ml IV PRN PRN PRN Reason: LINE FLUSH Review of Systems ROS unobtainable: due to mental status Exam - Constitutional Vitals: Temp Pulse Resp BP Pulse Ox 98.4 F 84 18 142/94 95 01/03/18 12:45 01/03/18 12:45 01/03/18 12:45 01/03/18 12:45 01/03/18 12:45 General appearance: Present: no acute distress - EENT Eyes: Present: EOM intact ENT: hearing intact - Neck Neck: Present: supple - Respiratory Respiratory effort: normal - Extremities Extremities: no ischemia - Psychiatric Psychiatric: no appropriate mood/affect (flat affect) - Neurologic Neurologic: other (patient is currently aphasic) Results - Labs CBC & Chem 7: 01/03/18 13:18 01/03/18 06:07 Labs: Abnormal lab results 01/02/18 01/02/18 01/03/18 Range/Units 22:45 22:45 06:07 RBC 5.46 H 5.18 H (3.65-5.03) M/mm3 MCV 78 L 77 L (79-97) fl MCH 25 L 25 L (28-32) pg RDW 16.8 H 16.7 H (13.2-15.2) % [place] % (Auto) 9.6 H (0.0-7.3) % Glucose 107 H (65-100) mg/dL Albumin 3.7 L (3.9-5) g/dL 01/03/18 Range/Units 06:07 RBC (3.65-5.03) M/mm3 MCV (79-97) fl MCH (28-32) pg RDW (13.2-15.2) % Sherman % (Auto) (0.0-7.3) % Glucose (65-100) mg/dL Albumin 3.5 L (3.9-5) g/dL Assessment and Plan This patient was admitted with an acute onset of altered mental status and aphasia concerning for TIA versus stroke. A CT angiogram of the neck shows a lesion in the left carotid artery. This may represent an ulcerated plaque versus a dissection. The patient has been started on anticoagulation with a heparin drip. Recommend continuing this over the weekend and repeating a CT angiogram early next week. Agree with neurology evaluation. - Patient Problems (1) Carotid stenosis, left Current Visit: Yes Status: Acute (2) Aphasia Current Visit: Yes Status: Acute (3) CVA (cerebral vascular accident) Current Visit: Yes Status: Suspected
--- NOTE | 2018-01-03 19:54 | Magnetic Resonance Report ---
FINAL REPORT PROCEDURE: MR BRAIN WO CON TECHNIQUE: Magnetic resonance imaging of the brain was performed without contrast material. HISTORY: Acute stroke. COMPARISON: CT scan of the brain and CTA of the brain dated 01/02/2018. FINDINGS: Skull base and calvarium: Normal. Paranasal sinuses: Mild scattered ethmoid sinusitis. Rightward septal deviation. Cerebellum: No evidence of hemorrhage, ischemia or mass. Brainstem: No evidence of hemorrhage, ischemia or mass. Cerebrum: There is an area of restricted diffusion in the left frontal lobe beginning at the level of the centrum semiovale extending inferiorly to the james radiata, along the sylvian fissure/insular cortex with mild extension in to the left basal ganglia. Patchy subcortical and periventricular white matter low attenuation, best seen on FLAIR imaging. Similar small areas of abnormal patchy signal intensity abnormality seen in the bilateral basal ganglia. Subtle area of high attenuation in the right midbrain/regina on T2 weighted imaging (11 series 8). Tiny anterior parafalcine lipoma. Linear subtle high attenuation on T1 weighted images. Ventricles: Normal in size and morphology for the patient's age. Pituitary gland and sella: Partial empty sella. Globes and orbits: Normal. Vasculature: Normal arterial and venous flow voids. Other: None. IMPRESSION: Restricted diffusion in the left frontal lobe, centrum semiovale, and james radiata with extending into the insular cortex about the sylvian fissure with possible mild extension in to the left basal ganglia. Findings concerning for acute ischemia/infarction. No abnormal gradient or T1 signal intensity seen to suggest acute hemorrhage. Subtle linear areas of high attenuation seen on T1 weighted imaging felt to represent artifact rather than subtle hemorrhage, can be re-evaluated on followup examination. Patchy subcortical and periventricular white matter disease also probably involving the basal ganglia likely chronic small vessel ischemic change and/or lacunes. Small area of abnormal T2 weighted signal intensity in the right midbrain/regina may be volume averaging, prominent perivascular space, or small lacune. This can also be re-evaluated on followup exam. Partial empty sella.
[2018-01-04] MEDS: NACL 0.45% 1000 ML 1,000 ML IV SCH (07:21)
[2018-01-04] MEDS: PEPCID IV SCH ×2 (11:32→22:00)
[2018-01-04] MEDS: ASPIRIN PO SCH (11:32)
--- NOTE | 2018-01-04 11:58 | Progress Note ---
Assessment and Plan Assessment and plan: Patient is a 62-year-old woman with a history of hypertension and tobacco dependency who presented to [facility] ED with altered mental status (first visit here ), she was out the window of TPA per ED physician documentation CT head w/o contrast reported as No acute intracranial hemorrhage. Ill-defined hypodense lesions of bilateral anterior limb internal capsules most likely represent subacute versus chronic infarcts. CTA head reported as Normal CT angiogram of the brain. No evidence of arterial stenosis, thrombosis, or aneurysm. CTA neck Bilateral 10-20 percent stenoses of both proximal internal carotid arteries by eccentric calcific plaque formation. 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 Distal to this the artery is unremarkable. Bilateral patent vertebral arteries with the left being dominant. No evidence of lymphadenopathy or acute process in the neck otherwise. Carotid Bilateral duplex reported as <50% STENOSIS NOTED BILAT BY DOPPLER VELOCITIES. BILAT ANTEG VERT FLOWS. POSSIBLE ULCERATIVE PLAQUE NOTED IN LT. PX ICA. -Acute cerebral infarct: Consult neurology, ordered MRI brain -Left carotid artery dissection: Discussed with vascular surgeon, treated with IV heparin -Acute metabolic encephalopathy as above -Tobacco dependency: Treated with nicotine patch MRI brain w/o contrast reported as Restricted diffusion in the left frontal lobe , centrum semiovale, and james radiata with extending into the insular cortex about the sylvian fissure with possible mild extension in to the left basal ganglia. Findings concerning for acute ischemia/infarction. No abnormal gradient or T1 signal intensity seen to suggest acute hemorrhage. Subtle linear areas of high attenuation seen on T1 weighted imaging felt to represent artifact rather than subtle hemorrhage, can be re-evaluated on followup examination. Patchy subcortical and periventricular white matter disease also probably involving the basal ganglia likely chronic small vessel ischemic change and/or lacunes. Small area of abnormal T2 weighted signal intensity in the right midbrain/regina may be volume averaging, prominent perivascular space, or small lacune. This can also be re-evaluated on followup exam. Partial empty sella." d/w daughterKhai over the phone continue iv heparin per Vascular, repeat CTA neck next week Subacute Placement most likely History Interval history: Patient was seen and examined. Follow-up on current diagnosis of altered mental status which is still present. Imaging, nursing note, chart, labs and old chart reviewed. Patient's nurse called me aroung 8 AM to report that radiologist called to report a 2.2 cm dissection of carotid artery. Hospitalist Physical - Physical exam Narrative exam: GEN: WDWN, NAD, AWAKE, ALERT, ORIENTATED 0, repeat "I don't know"over and over HEENT: NCAT, EOMI, PERRL, OP Clear NECK: supple, no adenopathy, no thyromegaly, no JVD CVS/HEART: RRR, NORMAL S1S2, pulses present bilaterally CHEST/LUNGS: CTA B, Symmetrical chest expansion, good air entry bilaterally GI/Abdomen: soft, NTND, good bowel sounds, no guarding or rebound /Bladder: no suprapubic tenderness, no CVA or paraspinal tenderness EXT/Skin: no c/c/e, no obvious rash MSK: Moving all limbs 4 Neuro: CN 2-12 grossly intact, expressive aphasia, follow some commands Psych: calm - Constitutional Vitals: Temp Pulse Resp BP Pulse Ox 97.8 F 78 20 127/63 96 01/04/18 08:51 01/04/18 08:51 01/04/18 08:51 01/04/18 08:51 01/04/18 08:51 General appearance: Present: no acute distress Results - Labs CBC & Chem 7: 01/03/18 13:18 01/03/18 06:07 Labs: Laboratory Last Values WBC 5.4 K/mm3 (4.5-11.0) 01/03/18 06:07 RBC 5.18 M/mm3 (3.65-5.03) H 01/03/18 06:07 Hgb 12.7 gm/dl (10.1-14.3) 01/03/18 13:18 Hct 39.4 % (30.3-42.9) 01/03/18 13:18 MCV 77 fl (79-97) L 01/03/18 06:07 MCH 25 pg (28-32) L 01/03/18 06:07 MCHC 32 % (30-34) 01/03/18 06:07 RDW 16.7 % (13.2-15.2) H 01/03/18 06:07 Plt Count 269 K/mm3 (140-440) 01/03/18 13:18 Lymph % (Auto) 26.6 % (13.4-35.0) 01/03/18 06:07 [place] % (Auto) 9.6 % (0.0-7.3) H 01/03/18 06:07 Eos % (Auto) 0.8 % (0.0-4.3) 01/03/18 06:07 Baso % (Auto) 0.7 % (0.0-1.8) 01/03/18 06:07 Lymph # 1.4 K/mm3 (1.2-5.4) 01/03/18 06:07 [place] # 0.5 K/mm3 (0.0-0.8) 01/03/18 06:07 Eos # 0.0 K/mm3 (0.0-0.4) 01/03/18 06:07 Baso # 0.0 K/mm3 (0.0-0.1) 01/03/18 06:07 Seg Neutrophils % 62.3 % (40.0-70.0) 01/03/18 06:07 Seg Neutrophils # 3.3 K/mm3 (1.8-7.7) 01/03/18 06:07 PT 13.4 Sec. (12.2-14.9) 01/03/18 13:18 INR 0.97 (0.87-1.13) 01/03/18 13:18 APTT 30.4 Sec. (24.2-36.6) 01/03/18 13:18 Thrombin Time 16.5 Sec. (15.1-19.6) 01/02/18 22:45 Heparin Anti-Xa Level 0.29 U.I./ml (0.3-0.7) L 01/04/18 05:43 Sodium 142 mmol/L (137-145) 01/03/18 06:07 Potassium 3.8 mmol/L (3.6-5.0) 01/03/18 06:07 Chloride 100.4 mmol/L (98-107) 01/03/18 06:07 Carbon Dioxide 24 mmol/L (22-30) 01/03/18 06:07 Anion Gap 21 mmol/L 01/03/18 06:07 BUN 11 mg/dL (7-17) 01/03/18 06:07 Creatinine 0.8 mg/dL (0.7-1.2) 01/03/18 06:07 Estimated GFR > 60 ml/min 01/03/18 06:07 BUN/Creatinine Ratio 14 % 01/03/18 06:07 Glucose 86 mg/dL (65-100) 01/03/18 06:07 Hemoglobin A1c 6.0 % (4-6) 01/03/18 06:07 Calcium 8.8 mg/dL (8.4-10.2) 01/03/18 06:07 Iron 39 ug/dL (37-170) 01/03/18 06:07 TIBC 274 mcg/dL (250-450) 01/03/18 06:07 % Saturation 14.23 % 01/03/18 06:07 Transferrin 223 mg/dl (192-382) 01/03/18 06:07 Ferritin 143.5 ng/mL (13.0-400.0) 01/03/18 06:07 Total Bilirubin 0.30 mg/dL (0.1-1.2) 01/03/18 06:07 AST 15 units/L (5-40) 01/03/18 06:07 ALT 10 units/L (7-56) 01/03/18 06:07 Alkaline Phosphatase 70 units/L (35-129) 01/03/18 06:07 Troponin T < 0.010 ng/mL (0.00-0.029) 01/02/18 22:45 Total Protein 7.3 g/dL (6.3-8.2) 01/03/18 06:07 Albumin 3.5 g/dL (3.9-5) L 01/03/18 06:07 Albumin/Globulin Ratio 0.9 % 01/03/18 06:07 Triglycerides 122 mg/dL (2-149) 01/03/18 06:07 Cholesterol 194 mg/dL (50-199) 01/03/18 06:07 LDL Cholesterol Direct 130 mg/dL (50-130) 01/03/18 06:07 HDL Cholesterol 40 mg/dL (40-59) 01/03/18 06:07 Cholesterol/HDL Ratio 4.85 % 01/03/18 06:07 Vitamin B12 690.1 pg/mL (211-911) 01/03/18 06:07 Folate 18.42 ng/mL (7.3-26.0) 01/03/18 06:07 TSH 1.200 mlU/mL (0.270-4.200) 01/03/18 06:07 Urine Color Yellow (Yellow) 01/02/18 22:59 Urine Turbidity Clear (Clear) 01/02/18 22:59 Urine pH 7.0 (5.0-7.0) 01/02/18 22:59 Ur Specific [place] 1.013 (1.003-1.030) 01/02/18 22:59 Urine Protein <15 mg/dl mg/dL (Negative) 01/02/18 22:59 Urine Glucose (UA) Neg mg/dL (Negative) 01/02/18 22:59 Urine Ketones Neg mg/dL (Negative) 01/02/18 22:59 Urine Blood Neg (Negative) 01/02/18 22:59 Urine Nitrite Neg (Negative) 01/02/18 22:59 Urine Bilirubin Neg (Negative) 01/02/18 22:59 Urine Urobilinogen 4.0 mg/dL (<2.0) 01/02/18 22:59 Ur Leukocyte Esterase Neg (Negative) 01/02/18 22:59 Urine WBC (Auto) < 1.0 /HPF (0.0-6.0) 01/02/18 22:59 Urine RBC (Auto) 2.0 /HPF (0.0-6.0) 01/02/18 22:59 U Epithel Cells (Auto) < 1.0 /HPF (0-13.0) 01/02/18 22:59 Urine Opiates Screen Presumptive negative 01/02/18 22:59 Urine Methadone Screen Presumptive negative 01/02/18 22:59 Ur Barbiturates Screen Presumptive negative 01/02/18 22:59 Ur Phencyclidine Scrn Presumptive negative 01/02/18 22:59 Ur Amphetamines Screen Presumptive negative 01/02/18 22:59 U Benzodiazepines Scrn Presumptive negative 01/02/18 22:59 Urine Cocaine Screen Presumptive negative 01/02/18 22:59 U Marijuana (THC) Screen Presumptive negative 01/02/18 22:59 Drugs of Abuse Note Disclamer 01/02/18 22:59
--- NOTE | 2018-01-04 15:11 | Progress Note ---
Assessment and Plan - Patient Problems (1) Carotid stenosis, left Current Visit: Yes Status: Acute Plan to address problem: Appears to be improving on heparin. Can now speak. Origin of stroke not entirely clear. Leave on heparin for now. Subjective Date of service: 01/04/18 Interval history: Now able to speak. Still has some difficulty with words. Says she is hungry. Objective - Constitutional Vitals: Vital Signs - 12hr 01/04/18 01/04/18 01/04/18 05:00 05:01 08:51 Temperature 98.2 F 97.8 F Pulse Rate 76 79 78 Respiratory 18 20 Rate Blood Pressure Blood Pressure 142/80 127/63 [Left] O2 Sat by Pulse 92 96 Oximetry 01/04/18 01/04/18 12:28 13:21 Temperature 97.8 F Pulse Rate 80 80 Respiratory 20 Rate Blood Pressure 179/125 Blood Pressure 179/125 [Left] O2 Sat by Pulse 93 Oximetry General appearance: Present: no acute distress - Neck Neck: supple - Respiratory Respiratory effort: normal - Neurologic Neurologic: other (can answer questions, uses short phrases) - Labs CBC & Chem 7: 01/03/18 13:18 01/03/18 06:07 Labs: Abnormal lab results 01/04/18 01/04/18 Range/Units 00:09 05:43 Heparin Anti-Xa Level 0.23 L 0.29 L (0.3-0.7) U.I./ml - Imaging and cardiology Other: other (echo does not show significant pathology)
[2018-01-04] MEDS: HEPARIN/ 0.45% NACL-25,000 UNIT/500 ML 25,000 UNIT/500 ML BAG IV SCH (17:26)
[2018-01-05 07:40] LABS: Hematocrit 38.4 % (30.3-42.9); Hemoglobin 12.4 gm/dl (10.1-14.3)
--- NOTE | 2018-01-05 08:07 | Progress Note ---
Assessment and Plan - Patient Problems (1) Carotid stenosis, left Current Visit: Yes Status: Acute Plan to address problem: Continue heparin gtt. Will need to re-image patient this week. Subjective Date of service: 01/05/18 Principal diagnosis: stroke Interval history: now speaking in sentences intermittently. wants to go home. Objective - Constitutional Vitals: Vital Signs - 12hr 01/04/18 01/05/18 01/05/18 20:17 01:16 05:51 Temperature 98.5 F 98.5 F 98.0 F Pulse Rate 100 H 86 73 Respiratory 20 18 20 Rate Blood Pressure 121/87 146/107 160/88 O2 Sat by Pulse 94 99 97 Oximetry General appearance: Present: no acute distress - Neck Neck: supple - Neurologic Neurologic: other (expressive apahsia but seems to be improving) - Labs CBC & Chem 7: 01/05/18 07:09 01/03/18 06:07
[2018-01-05] MEDS: NACL 0.45% 1000 ML 1,000 ML IV SCH (09:55)
[2018-01-05] MEDS: PEPCID IV SCH ×2 (11:15→22:00)
[2018-01-05] MEDS: ASPIRIN PO SCH (11:17)
--- NOTE | 2018-01-05 15:02 | Progress Note ---
Assessment and Plan Assessment and plan: Patient is a 62-year-old woman with a history of hypertension and tobacco dependency who presented to [facility] ED with altered mental status (first visit here ), she was out the window of TPA per ED physician documentation CT head w/o contrast reported as No acute intracranial hemorrhage. Ill-defined hypodense lesions of bilateral anterior limb internal capsules most likely represent subacute versus chronic infarcts. CTA head reported as Normal CT angiogram of the brain. No evidence of arterial stenosis, thrombosis, or aneurysm. CTA neck Bilateral 10-20 percent stenoses of both proximal internal carotid arteries by eccentric calcific plaque formation. 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 Distal to this the artery is unremarkable. Bilateral patent vertebral arteries with the left being dominant. No evidence of lymphadenopathy or acute process in the neck otherwise. Carotid Bilateral duplex reported as <50% STENOSIS NOTED BILAT BY DOPPLER VELOCITIES. BILAT ANTEG VERT FLOWS. POSSIBLE ULCERATIVE PLAQUE NOTED IN LT. PX ICA. -Acute cerebral infarct: Consult neurology, ordered MRI brain -Left carotid artery dissection: Discussed with vascular surgeon, treated with IV heparin -Acute metabolic encephalopathy as above -Tobacco dependency: Treated with nicotine patch MRI brain w/o contrast reported as Restricted diffusion in the left frontal lobe , centrum semiovale, and james radiata with extending into the insular cortex about the sylvian fissure with possible mild extension in to the left basal ganglia. Findings concerning for acute ischemia/infarction. No abnormal gradient or T1 signal intensity seen to suggest acute hemorrhage. Subtle linear areas of high attenuation seen on T1 weighted imaging felt to represent artifact rather than subtle hemorrhage, can be re-evaluated on followup examination. Patchy subcortical and periventricular white matter disease also probably involving the basal ganglia likely chronic small vessel ischemic change and/or lacunes. Small area of abnormal T2 weighted signal intensity in the right midbrain/regina may be volume averaging, prominent perivascular space, or small lacune. This can also be re-evaluated on followup exam. Partial empty sella." d/w daughter, [place] at bedside continue iv heparin per Vascular, repeat CTA neck next week, hold off on Coumadin just yet, discussed with Dr. Hayes Subacute Placement most likely History Interval history: Patient was seen and examined. Follow-up on current diagnosis of altered mental status which is still present. Imaging, nursing note, chart, labs and old chart reviewed. Patient's nurse called me aroung 8 AM to report that radiologist called to report a 2.2 cm dissection of carotid artery. Hospitalist Physical - Physical exam Narrative exam: GEN: WDWN, NAD, AWAKE, ALERT, ORIENTATED 0, repeat "I don't know"over and over HEENT: NCAT, EOMI, PERRL, OP Clear NECK: supple, no adenopathy, no thyromegaly, no JVD CVS/HEART: RRR, NORMAL S1S2, pulses present bilaterally CHEST/LUNGS: CTA B, Symmetrical chest expansion, good air entry bilaterally GI/Abdomen: soft, NTND, good bowel sounds, no guarding or rebound /Bladder: no suprapubic tenderness, no CVA or paraspinal tenderness EXT/Skin: no c/c/e, no obvious rash MSK: Moving all limbs 4 Neuro: CN 2-12 grossly intact, expressive aphasia, follow some commands Psych: calm - Constitutional Vitals: Temp Pulse Resp BP Pulse Ox 98.0 F 73 20 160/88 97 01/05/18 05:51 01/05/18 05:51 01/05/18 05:51 01/05/18 05:51 01/05/18 05:51 General appearance: Present: no acute distress Results - Labs CBC & Chem 7: 01/05/18 07:09 01/03/18 06:07 Labs: Laboratory Last Values WBC 5.4 K/mm3 (4.5-11.0) 01/03/18 06:07 RBC 5.18 M/mm3 (3.65-5.03) H 01/03/18 06:07 Hgb 12.4 gm/dl (10.1-14.3) 01/05/18 07:09 Hct 38.4 % (30.3-42.9) 01/05/18 07:09 MCV 77 fl (79-97) L 01/03/18 06:07 MCH 25 pg (28-32) L 01/03/18 06:07 MCHC 32 % (30-34) 01/03/18 06:07 RDW 16.7 % (13.2-15.2) H 01/03/18 06:07 Plt Count 239 K/mm3 (140-440) 01/05/18 07:09 Lymph % (Auto) 26.6 % (13.4-35.0) 01/03/18 06:07 [place] % (Auto) 9.6 % (0.0-7.3) H 01/03/18 06:07 Eos % (Auto) 0.8 % (0.0-4.3) 01/03/18 06:07 Baso % (Auto) 0.7 % (0.0-1.8) 01/03/18 06:07 Lymph # 1.4 K/mm3 (1.2-5.4) 01/03/18 06:07 [place] # 0.5 K/mm3 (0.0-0.8) 01/03/18 06:07 Eos # 0.0 K/mm3 (0.0-0.4) 01/03/18 06:07 Baso # 0.0 K/mm3 (0.0-0.1) 01/03/18 06:07 Seg Neutrophils % 62.3 % (40.0-70.0) 01/03/18 06:07 Seg Neutrophils # 3.3 K/mm3 (1.8-7.7) 01/03/18 06:07 PT 13.4 Sec. (12.2-14.9) 01/03/18 13:18 INR 0.97 (0.87-1.13) 01/03/18 13:18 APTT 30.4 Sec. (24.2-36.6) 01/03/18 13:18 Thrombin Time 16.5 Sec. (15.1-19.6) 01/02/18 22:45 Heparin Anti-Xa Level 0.29 U.I./ml (0.3-0.7) L 01/05/18 07:09 Sodium 142 mmol/L (137-145) 01/03/18 06:07 Potassium 3.8 mmol/L (3.6-5.0) 01/03/18 06:07 Chloride 100.4 mmol/L (98-107) 01/03/18 06:07 Carbon Dioxide 24 mmol/L (22-30) 01/03/18 06:07 Anion Gap 21 mmol/L 01/03/18 06:07 BUN 11 mg/dL (7-17) 01/03/18 06:07 Creatinine 0.8 mg/dL (0.7-1.2) 01/03/18 06:07 Estimated GFR > 60 ml/min 01/03/18 06:07 BUN/Creatinine Ratio 14 % 01/03/18 06:07 Glucose 86 mg/dL (65-100) 01/03/18 06:07 Hemoglobin A1c 6.0 % (4-6) 01/03/18 06:07 Calcium 8.8 mg/dL (8.4-10.2) 01/03/18 06:07 Iron 39 ug/dL (37-170) 01/03/18 06:07 TIBC 274 mcg/dL (250-450) 01/03/18 06:07 % Saturation 14.23 % 01/03/18 06:07 Transferrin 223 mg/dl (192-382) 01/03/18 06:07 Ferritin 143.5 ng/mL (13.0-400.0) 01/03/18 06:07 Total Bilirubin 0.30 mg/dL (0.1-1.2) 01/03/18 06:07 AST 15 units/L (5-40) 01/03/18 06:07 ALT 10 units/L (7-56) 01/03/18 06:07 Alkaline Phosphatase 70 units/L (35-129) 01/03/18 06:07 Troponin T < 0.010 ng/mL (0.00-0.029) 01/02/18 22:45 Total Protein 7.3 g/dL (6.3-8.2) 01/03/18 06:07 Albumin 3.5 g/dL (3.9-5) L 01/03/18 06:07 Albumin/Globulin Ratio 0.9 % 01/03/18 06:07 Triglycerides 122 mg/dL (2-149) 01/03/18 06:07 Cholesterol 194 mg/dL (50-199) 01/03/18 06:07 LDL Cholesterol Direct 130 mg/dL (50-130) 01/03/18 06:07 HDL Cholesterol 40 mg/dL (40-59) 01/03/18 06:07 Cholesterol/HDL Ratio 4.85 % 01/03/18 06:07 Vitamin B12 690.1 pg/mL (211-911) 01/03/18 06:07 Folate 18.42 ng/mL (7.3-26.0) 01/03/18 06:07 TSH 1.200 mlU/mL (0.270-4.200) 01/03/18 06:07 Urine Color Yellow (Yellow) 01/02/18 22:59 Urine Turbidity Clear (Clear) 01/02/18 22:59 Urine pH 7.0 (5.0-7.0) 01/02/18 22:59 Ur Specific [place] 1.013 (1.003-1.030) 01/02/18 22:59 Urine Protein <15 mg/dl mg/dL (Negative) 01/02/18 22:59 Urine Glucose (UA) Neg mg/dL (Negative) 01/02/18 22:59 Urine Ketones Neg mg/dL (Negative) 01/02/18 22:59 Urine Blood Neg (Negative) 01/02/18 22:59 Urine Nitrite Neg (Negative) 01/02/18 22:59 Urine Bilirubin Neg (Negative) 01/02/18 22:59 Urine Urobilinogen 4.0 mg/dL (<2.0) 01/02/18 22:59 Ur Leukocyte Esterase Neg (Negative) 01/02/18 22:59 Urine WBC (Auto) < 1.0 /HPF (0.0-6.0) 01/02/18 22:59 Urine RBC (Auto) 2.0 /HPF (0.0-6.0) 01/02/18 22:59 U Epithel Cells (Auto) < 1.0 /HPF (0-13.0) 01/02/18 22:59 Urine Opiates Screen Presumptive negative 01/02/18 22:59 Urine Methadone Screen Presumptive negative 01/02/18 22:59 Ur Barbiturates Screen Presumptive negative 01/02/18 22:59 Ur Phencyclidine Scrn Presumptive negative 01/02/18 22:59 Ur Amphetamines Screen Presumptive negative 01/02/18 22:59 U Benzodiazepines Scrn Presumptive negative 01/02/18 22:59 Urine Cocaine Screen Presumptive negative 01/02/18 22:59 U Marijuana (THC) Screen Presumptive negative 01/02/18 22:59 Drugs of Abuse Note Disclamer 01/02/18 22:59
[2018-01-05] MEDS: HEPARIN/ 0.45% NACL-25,000 UNIT/500 ML 25,000 UNIT/500 ML BAG IV SCH (16:38)
[2018-01-06] MEDS: PEPCID IV SCH (10:24)
[2018-01-06] MEDS: ASPIRIN PO SCH (10:24)
--- NOTE | 2018-01-06 14:10 | Progress Note ---
Assessment and Plan 62 year old female with hypertension and smoking history, new onset fluent aphasia yesterday. Evidence of vascular disease on CTA. CT scan does not fit the clinical picture. MRI confirms acute stroke in frontal-temporal region. Left internal carotid calcified plaque with dissection above. Vascular following, on heparin. Plan - speech therapy PT/OT to mobilize patient. Continue heparin. Subjective Date of service: 01/06/18 Principal diagnosis: stroke Interval history: 62 year old female with history of acute onset of aphasia, brought to ER on 01/02 and found to have left MCA distribution stroke on MRI scan involving frontal , temporal lobe. She has had no motor, sensory or coordination problems. No difficulty swallowing, awake and alert. Denies headache or pain. CT angio of neck confirmed a left carotid artery calcified plaque with dissection above. She is on heparin and being followed by vascular surgery. Today she remains with expressive aphasia. Denies headache, pain, difficulty swallowing. Answers in short phrases. Objective - Exam Narrative Exam: HEENT - normocephalic. minimal speech. pupils perrla. moist membranes. no inflammation. Chest - clear to auscultation. Heart - reg. rate. nl. S-1, S-2. Abdomen - soft, nontender. Extremities - w/o CCE. Neurological - occasionally responds with one or two simple words that are fluent. More verbal today. Expressive aphasia. Names several objects clearly. (50% correct). Follows commands well. CN's - EOMs full. face symmetric, V-1 thru V-3 intact. hearing intact. tongue midline. Motor- 5/5 bilaterally, symmetric. Reflexes - +1 throughout. Sensory - intact to touch and pain Cerebellar - fine finger movements and rapd alternating movements she did well. She could not do finger to nose. - Vital Sign Vital Signs - 12hr 01/06/18 01/06/18 01/06/18 05:27 05:35 07:25 Temperature 98.1 F 97.7 F Pulse Rate 87 89 75 Respiratory 20 20 Rate Blood Pressure 132/90 Blood Pressure 152/112 [Left] O2 Sat by Pulse 95 97 99 Oximetry 01/06/18 01/06/18 09:23 11:57 Temperature Pulse Rate 75 Respiratory 20 Rate Blood Pressure Blood Pressure [Left] O2 Sat by Pulse Oximetry - Laboratory Findings CBC and BMP: 01/05/18 07:09 01/03/18 06:07 Abnormal Lab Findings: Abnormal Labs 01/02/18 01/02/18 01/03/18 22:45 22:45 06:07 RBC 5.46 H 5.18 H MCV 78 L 77 L MCH 25 L 25 L RDW 16.8 H 16.7 H [place] % (Auto) 9.6 H Heparin Anti-Xa Level Glucose 107 H Albumin 3.7 L 01/03/18 01/04/18 01/04/18 06:07 00:09 05:43 RBC MCV MCH RDW [place] % (Auto) Heparin Anti-Xa Level 0.23 L 0.29 L Glucose Albumin 3.5 L 01/05/18 07:09 RBC MCV MCH RDW [place] % (Auto) Heparin Anti-Xa Level 0.29 L Glucose Albumin
--- NOTE | 2018-01-06 14:57 | Progress Note ---
Assessment and Plan Assessment and plan: Patient is a 62-year-old woman with a history of hypertension and tobacco dependency who presented to [facility] ED with altered mental status (first visit here ), she was out the window of TPA per ED physician documentation CT head w/o contrast reported as No acute intracranial hemorrhage. Ill-defined hypodense lesions of bilateral anterior limb internal capsules most likely represent subacute versus chronic infarcts. CTA head reported as Normal CT angiogram of the brain. No evidence of arterial stenosis, thrombosis, or aneurysm. CTA neck Bilateral 10-20 percent stenoses of both proximal internal carotid arteries by eccentric calcific plaque formation. 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 Distal to this the artery is unremarkable. Bilateral patent vertebral arteries with the left being dominant. No evidence of lymphadenopathy or acute process in the neck otherwise. Carotid Bilateral duplex reported as <50% STENOSIS NOTED BILAT BY DOPPLER VELOCITIES. BILAT ANTEG VERT FLOWS. POSSIBLE ULCERATIVE PLAQUE NOTED IN LT. PX ICA. -Acute cerebral infarct: Consult neurology, ordered MRI brain -Left carotid artery dissection: Discussed with vascular surgeon, treated with IV heparin -Acute metabolic encephalopathy as above -Tobacco dependency: Treated with nicotine patch MRI brain w/o contrast reported as Restricted diffusion in the left frontal lobe , centrum semiovale, and james radiata with extending into the insular cortex about the sylvian fissure with possible mild extension in to the left basal ganglia. Findings concerning for acute ischemia/infarction. No abnormal gradient or T1 signal intensity seen to suggest acute hemorrhage. Subtle linear areas of high attenuation seen on T1 weighted imaging felt to represent artifact rather than subtle hemorrhage, can be re-evaluated on followup examination. Patchy subcortical and periventricular white matter disease also probably involving the basal ganglia likely chronic small vessel ischemic change and/or lacunes. Small area of abnormal T2 weighted signal intensity in the right midbrain/regina may be volume averaging, prominent perivascular space, or small lacune. This can also be re-evaluated on followup exam. Partial empty sella." continue iv heparin per Vascular, repeat CTA neck next week, hold off on Coumadin just yet, discussed with Dr. Hayes Subacute Placement most likely History Interval history: Patient was seen and examined. Follow-up on current diagnosis of altered mental status which is still present. Imaging, nursing note, chart, labs and old chart reviewed. Patient's nurse called me aroung 8 AM to report that radiologist called to report a 2.2 cm dissection of carotid artery. Hospitalist Physical - Physical exam Narrative exam: GEN: WDWN, NAD, AWAKE, ALERT, ORIENTATED 0, repeat "I don't know"over and over HEENT: NCAT, EOMI, PERRL, OP Clear NECK: supple, no adenopathy, no thyromegaly, no JVD CVS/HEART: RRR, NORMAL S1S2, pulses present bilaterally CHEST/LUNGS: CTA B, Symmetrical chest expansion, good air entry bilaterally GI/Abdomen: soft, NTND, good bowel sounds, no guarding or rebound /Bladder: no suprapubic tenderness, no CVA or paraspinal tenderness EXT/Skin: no c/c/e, no obvious rash MSK: Moving all limbs 4 Neuro: CN 2-12 grossly intact, expressive aphasia, follow some commands Psych: calm - Constitutional Vitals: Temp Pulse Resp BP Pulse Ox 97.7 F 75 20 132/90 99 01/06/18 07:25 01/06/18 11:57 01/06/18 09:23 01/06/18 07:25 01/06/18 07:25 General appearance: Present: no acute distress Results - Labs CBC & Chem 7: 01/05/18 07:09 01/03/18 06:07 Labs: Laboratory Last Values WBC 5.4 K/mm3 (4.5-11.0) 01/03/18 06:07 RBC 5.18 M/mm3 (3.65-5.03) H 01/03/18 06:07 Hgb 12.4 gm/dl (10.1-14.3) 01/05/18 07:09 Hct 38.4 % (30.3-42.9) 01/05/18 07:09 MCV 77 fl (79-97) L 01/03/18 06:07 MCH 25 pg (28-32) L 01/03/18 06:07 MCHC 32 % (30-34) 01/03/18 06:07 RDW 16.7 % (13.2-15.2) H 01/03/18 06:07 Plt Count 239 K/mm3 (140-440) 01/05/18 07:09 Lymph % (Auto) 26.6 % (13.4-35.0) 01/03/18 06:07 [place]ine % (Auto) 9.6 % (0.0-7.3) H 01/03/18 06:07 Eos % (Auto) 0.8 % (0.0-4.3) 01/03/18 06:07 Baso % (Auto) 0.7 % (0.0-1.8) 01/03/18 06:07 Lymph # 1.4 K/mm3 (1.2-5.4) 01/03/18 06:07 Josephine # 0.5 K/mm3 (0.0-0.8) 01/03/18 06:07 Eos # 0.0 K/mm3 (0.0-0.4) 01/03/18 06:07 Baso # 0.0 K/mm3 (0.0-0.1) 01/03/18 06:07 Seg Neutrophils % 62.3 % (40.0-70.0) 01/03/18 06:07 Seg Neutrophils # 3.3 K/mm3 (1.8-7.7) 01/03/18 06:07 PT 13.4 Sec. (12.2-14.9) 01/03/18 13:18 INR 0.97 (0.87-1.13) 01/03/18 13:18 APTT 30.4 Sec. (24.2-36.6) 01/03/18 13:18 Thrombin Time 16.5 Sec. (15.1-19.6) 01/02/18 22:45 Heparin Anti-Xa Level 0.34 U.I./ml (0.3-0.7) 01/06/18 07:04 Sodium 142 mmol/L (137-145) 01/03/18 06:07 Potassium 3.8 mmol/L (3.6-5.0) 01/03/18 06:07 Chloride 100.4 mmol/L (98-107) 01/03/18 06:07 Carbon Dioxide 24 mmol/L (22-30) 01/03/18 06:07 Anion Gap 21 mmol/L 01/03/18 06:07 BUN 11 mg/dL (7-17) 01/03/18 06:07 Creatinine 0.8 mg/dL (0.7-1.2) 01/03/18 06:07 Estimated GFR > 60 ml/min 01/03/18 06:07 BUN/Creatinine Ratio 14 % 01/03/18 06:07 Glucose 86 mg/dL (65-100) 01/03/18 06:07 POC Glucose 90 (70-105) 01/05/18 22:35 Hemoglobin A1c 6.0 % (4-6) 01/03/18 06:07 Calcium 8.8 mg/dL (8.4-10.2) 01/03/18 06:07 Iron 39 ug/dL (37-170) 01/03/18 06:07 TIBC 274 mcg/dL (250-450) 01/03/18 06:07 % Saturation 14.23 % 01/03/18 06:07 Transferrin 223 mg/dl (192-382) 01/03/18 06:07 Ferritin 143.5 ng/mL (13.0-400.0) 01/03/18 06:07 Total Bilirubin 0.30 mg/dL (0.1-1.2) 01/03/18 06:07 AST 15 units/L (5-40) 01/03/18 06:07 ALT 10 units/L (7-56) 01/03/18 06:07 Alkaline Phosphatase 70 units/L (35-129) 01/03/18 06:07 Troponin T < 0.010 ng/mL (0.00-0.029) 01/02/18 22:45 Total Protein 7.3 g/dL (6.3-8.2) 01/03/18 06:07 Albumin 3.5 g/dL (3.9-5) L 01/03/18 06:07 Albumin/Globulin Ratio 0.9 % 01/03/18 06:07 Triglycerides 122 mg/dL (2-149) 01/03/18 06:07 Cholesterol 194 mg/dL (50-199) 01/03/18 06:07 LDL Cholesterol Direct 130 mg/dL (50-130) 01/03/18 06:07 HDL Cholesterol 40 mg/dL (40-59) 01/03/18 06:07 Cholesterol/HDL Ratio 4.85 % 01/03/18 06:07 Vitamin B12 690.1 pg/mL (211-911) 01/03/18 06:07 Folate 18.42 ng/mL (7.3-26.0) 01/03/18 06:07 TSH 1.200 mlU/mL (0.270-4.200) 01/03/18 06:07 Urine Color Yellow (Yellow) 01/02/18 22:59 Urine Turbidity Clear (Clear) 01/02/18 22:59 Urine pH 7.0 (5.0-7.0) 01/02/18 22:59 Ur Specific [place] 1.013 (1.003-1.030) 01/02/18 22:59 Urine Protein <15 mg/dl mg/dL (Negative) 01/02/18 22:59 Urine Glucose (UA) Neg mg/dL (Negative) 01/02/18 22:59 Urine Ketones Neg mg/dL (Negative) 01/02/18 22:59 Urine Blood Neg (Negative) 01/02/18 22:59 Urine Nitrite Neg (Negative) 01/02/18 22:59 Urine Bilirubin Neg (Negative) 01/02/18 22:59 Urine Urobilinogen 4.0 mg/dL (<2.0) 01/02/18 22:59 Ur Leukocyte Esterase Neg (Negative) 01/02/18 22:59 Urine WBC (Auto) < 1.0 /HPF (0.0-6.0) 01/02/18 22:59 Urine RBC (Auto) 2.0 /HPF (0.0-6.0) 01/02/18 22:59 U Epithel Cells (Auto) < 1.0 /HPF (0-13.0) 01/02/18 22:59 Urine Opiates Screen Presumptive negative 01/02/18 22:59 Urine Methadone Screen Presumptive negative 01/02/18 22:59 Ur Barbiturates Screen Presumptive negative 01/02/18 22:59 Ur Phencyclidine Scrn Presumptive negative 01/02/18 22:59 Ur Amphetamines Screen Presumptive negative 01/02/18 22:59 U Benzodiazepines Scrn Presumptive negative 01/02/18 22:59 Urine Cocaine Screen Presumptive negative 01/02/18 22:59 U Marijuana (THC) Screen Presumptive negative 01/02/18 22:59 Drugs of Abuse Note Disclamer 01/02/18 22:59
[2018-01-06] MEDS: HEPARIN/ 0.45% NACL-25,000 UNIT/500 ML 25,000 UNIT/500 ML BAG IV SCH (19:25)
[2018-01-06] MEDS: NACL 0.45% 1000 ML 1,000 ML IV SCH (19:26)
--- NOTE | 2018-01-06 20:17 | Cat Scan Report ---
FINAL REPORT PROCEDURE: CT ANGIO NECK TECHNIQUE: Computerized tomographic angiography of the neck was performed during the IV injection of iodinated nonionic contrast including image processing. The image data was postprocessed using 2-dimensional multiplanar reformatted (MPR) and 3-dimensional (MIP and/or volume rendered) techniques. HISTORY: carotid dissection COMPARISON: Prior CT angiography of the neck 01/03/2018 Note: Assessment of carotid artery stenosis is based on measurement of the distal internal carotid artery diameter as the denominator for stenosis calculations and the [place] Symptomatic Carotid Endarterectomy Trial (NASCET) stenosis criteria . CPT 3100F FINDINGS: Right and left common carotid arteries are patent. There are small calcified plaque seen in both right and left common carotid arteries without significant stenosis, less than 20 percent narrowing. There is calcified plaquing seen in the left carotid bulb extending into the origin of the internal carotid artery. There is only minimal narrowing, less than 20 percent. A linear band which appears to represent dissection on the prior study is less well visualized today although appears to extend slightly more superiorly. This extends to the mid internal carotid artery which shows marked tortuosity. I do not see further extension. This appears to be best visualized on sagittal view image 67 series 202. There is a small amount of calcified plaquing seen in the right carotid bulb extending into the internal carotid artery without significant stenosis, less than 20 percent. The distal internal carotid artery is markedly tortuous. Both vertebral arteries appear to be patent. IMPRESSION: Dissection left internal carotid artery extending superiorly from the carotid bulb appears to have extended slightly further superiorly although the true and false channels remain patent. The dissection appears to extend to the mid internal carotid artery where there is marked tortuosity although does not appear to extend beyond this point. Mild calcified plaquing seen in both common carotid arteries also in the carotid bulbs and internal carotid arteries without high-grade stenosis, less than 20 percent stenosis estimated. Both vertebral arteries are patent.
[2018-01-06] MEDS: PEPCID PO SCH (22:31)
[2018-01-07 06:04] LABS: Hematocrit 38.6 % (30.3-42.9); Hemoglobin 12.5 gm/dl (10.1-14.3)
[2018-01-07] MEDS: ASPIRIN PO SCH (10:08)
[2018-01-07] MEDS: NACL 0.45% 1000 ML 1,000 ML IV SCH (10:08)
[2018-01-07] MEDS: PEPCID PO SCH (10:08)
[2018-01-07 12:29] VITALS: BP 120/76
--- NOTE | 2018-01-07 12:36 | Progress Note ---
Assessment and Plan Assessment and plan: Patient is a 62-year-old woman with a history of hypertension and tobacco dependency who presented to [facility] ED with altered mental status (first visit here ), she was out the window of TPA per ED physician documentation CT head w/o contrast reported as No acute intracranial hemorrhage. Ill-defined hypodense lesions of bilateral anterior limb internal capsules most likely represent subacute versus chronic infarcts. CTA head reported as Normal CT angiogram of the brain. No evidence of arterial stenosis, thrombosis, or aneurysm. CTA neck Bilateral 10-20 percent stenoses of both proximal internal carotid arteries by eccentric calcific plaque formation. 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 Distal to this the artery is unremarkable. Bilateral patent vertebral arteries with the left being dominant. No evidence of lymphadenopathy or acute process in the neck otherwise. Carotid Bilateral duplex reported as <50% STENOSIS NOTED BILAT BY DOPPLER VELOCITIES. BILAT ANTEG VERT FLOWS. POSSIBLE ULCERATIVE PLAQUE NOTED IN LT. PX ICA. -Acute cerebral infarct: Consult neurology, ordered MRI brain -Left carotid artery dissection: Discussed with vascular surgeon, treated with IV heparin -Acute metabolic encephalopathy as above -Tobacco dependency: Treated with nicotine patch MRI brain w/o contrast reported as Restricted diffusion in the left frontal lobe , centrum semiovale, and james radiata with extending into the insular cortex about the sylvian fissure with possible mild extension in to the left basal ganglia. Findings concerning for acute ischemia/infarction. No abnormal gradient or T1 signal intensity seen to suggest acute hemorrhage. Subtle linear areas of high attenuation seen on T1 weighted imaging felt to represent artifact rather than subtle hemorrhage, can be re-evaluated on followup examination. Patchy subcortical and periventricular white matter disease also probably involving the basal ganglia likely chronic small vessel ischemic change and/or lacunes. Small area of abnormal T2 weighted signal intensity in the right midbrain/regina may be volume averaging, prominent perivascular space, or small lacune. This can also be re-evaluated on followup exam. Partial empty sella." continue iv heparin per Vascular, repeat CTA neck next week, hold off on Coumadin just yet, discussed with Dr. Hayes Subacute Placement most likely==>patient refusing placement History Interval history: Patient was seen and examined. Follow-up on current diagnosis of altered mental status which is still present. Imaging, nursing note, chart, labs and old chart reviewed. Patient's nurse called me aroung 8 AM to report that radiologist called to report a 2.2 cm dissection of carotid artery. Hospitalist Physical - Physical exam Narrative exam: GEN: WDWN, NAD, AWAKE, ALERT, ORIENTATED 0, repeat "I don't know"over and over HEENT: NCAT, EOMI, PERRL, OP Clear NECK: supple, no adenopathy, no thyromegaly, no JVD CVS/HEART: RRR, NORMAL S1S2, pulses present bilaterally CHEST/LUNGS: CTA B, Symmetrical chest expansion, good air entry bilaterally GI/Abdomen: soft, NTND, good bowel sounds, no guarding or rebound /Bladder: no suprapubic tenderness, no CVA or paraspinal tenderness EXT/Skin: no c/c/e, no obvious rash MSK: Moving all limbs 4 Neuro: CN 2-12 grossly intact, expressive aphasia, follow some commands Psych: calm - Constitutional Vitals: Temp Pulse Resp BP Pulse Ox 98.3 F 76 18 120/76 98 01/07/18 12:28 01/07/18 12:28 01/07/18 12:28 01/07/18 12:28 01/07/18 12:28 General appearance: Present: no acute distress Results - Labs CBC & Chem 7: 01/07/18 05:15 01/03/18 06:07 Labs: Laboratory Last Values WBC 5.4 K/mm3 (4.5-11.0) 01/03/18 06:07 RBC 5.18 M/mm3 (3.65-5.03) H 01/03/18 06:07 Hgb 12.5 gm/dl (10.1-14.3) 01/07/18 05:15 Hct 38.6 % (30.3-42.9) 01/07/18 05:15 MCV 77 fl (79-97) L 01/03/18 06:07 MCH 25 pg (28-32) L 01/03/18 06:07 MCHC 32 % (30-34) 01/03/18 06:07 RDW 16.7 % (13.2-15.2) H 01/03/18 06:07 Plt Count 223 K/mm3 (140-440) 01/07/18 05:15 Lymph % (Auto) 26.6 % (13.4-35.0) 01/03/18 06:07 [place] % (Auto) 9.6 % (0.0-7.3) H 01/03/18 06:07 Eos % (Auto) 0.8 % (0.0-4.3) 01/03/18 06:07 Baso % (Auto) 0.7 % (0.0-1.8) 01/03/18 06:07 Lymph # 1.4 K/mm3 (1.2-5.4) 01/03/18 06:07 [place] # 0.5 K/mm3 (0.0-0.8) 01/03/18 06:07 Eos # 0.0 K/mm3 (0.0-0.4) 01/03/18 06:07 Baso # 0.0 K/mm3 (0.0-0.1) 01/03/18 06:07 Seg Neutrophils % 62.3 % (40.0-70.0) 01/03/18 06:07 Seg Neutrophils # 3.3 K/mm3 (1.8-7.7) 01/03/18 06:07 PT 13.4 Sec. (12.2-14.9) 01/03/18 13:18 INR 0.97 (0.87-1.13) 01/03/18 13:18 APTT 30.4 Sec. (24.2-36.6) 01/03/18 13:18 Thrombin Time 16.5 Sec. (15.1-19.6) 01/02/18 22:45 Heparin Anti-Xa Level 0.24 U.I./ml (0.3-0.7) L 01/07/18 05:17 Sodium 142 mmol/L (137-145) 01/03/18 06:07 Potassium 3.8 mmol/L (3.6-5.0) 01/03/18 06:07 Chloride 100.4 mmol/L (98-107) 01/03/18 06:07 Carbon Dioxide 24 mmol/L (22-30) 01/03/18 06:07 Anion Gap 21 mmol/L 01/03/18 06:07 BUN 11 mg/dL (7-17) 01/03/18 06:07 Creatinine 0.8 mg/dL (0.7-1.2) 01/03/18 06:07 Estimated GFR > 60 ml/min 01/03/18 06:07 BUN/Creatinine Ratio 14 % 01/03/18 06:07 Glucose 86 mg/dL (65-100) 01/03/18 06:07 POC Glucose 90 (70-105) 01/05/18 22:35 Hemoglobin A1c 6.0 % (4-6) 01/03/18 06:07 Calcium 8.8 mg/dL (8.4-10.2) 01/03/18 06:07 Iron 39 ug/dL (37-170) 01/03/18 06:07 TIBC 274 mcg/dL (250-450) 01/03/18 06:07 % Saturation 14.23 % 01/03/18 06:07 Transferrin 223 mg/dl (192-382) 01/03/18 06:07 Ferritin 143.5 ng/mL (13.0-400.0) 01/03/18 06:07 Total Bilirubin 0.30 mg/dL (0.1-1.2) 01/03/18 06:07 AST 15 units/L (5-40) 01/03/18 06:07 ALT 10 units/L (7-56) 01/03/18 06:07 Alkaline Phosphatase 70 units/L (35-129) 01/03/18 06:07 Troponin T < 0.010 ng/mL (0.00-0.029) 01/02/18 22:45 Total Protein 7.3 g/dL (6.3-8.2) 01/03/18 06:07 Albumin 3.5 g/dL (3.9-5) L 01/03/18 06:07 Albumin/Globulin Ratio 0.9 % 01/03/18 06:07 Triglycerides 122 mg/dL (2-149) 01/03/18 06:07 Cholesterol 194 mg/dL (50-199) 01/03/18 06:07 LDL Cholesterol Direct 130 mg/dL (50-130) 01/03/18 06:07 HDL Cholesterol 40 mg/dL (40-59) 01/03/18 06:07 Cholesterol/HDL Ratio 4.85 % 01/03/18 06:07 Vitamin B12 690.1 pg/mL (211-911) 01/03/18 06:07 Folate 18.42 ng/mL (7.3-26.0) 01/03/18 06:07 TSH 1.200 mlU/mL (0.270-4.200) 01/03/18 06:07 Urine Color Yellow (Yellow) 01/02/18 22:59 Urine Turbidity Clear (Clear) 01/02/18 22:59 Urine pH 7.0 (5.0-7.0) 01/02/18 22:59 Ur Specific [place] 1.013 (1.003-1.030) 01/02/18 22:59 Urine Protein <15 mg/dl mg/dL (Negative) 01/02/18 22:59 Urine Glucose (UA) Neg mg/dL (Negative) 01/02/18 22:59 Urine Ketones Neg mg/dL (Negative) 01/02/18 22:59 Urine Blood Neg (Negative) 01/02/18 22:59 Urine Nitrite Neg (Negative) 01/02/18 22:59 Urine Bilirubin Neg (Negative) 01/02/18 22:59 Urine Urobilinogen 4.0 mg/dL (<2.0) 01/02/18 22:59 Ur Leukocyte Esterase Neg (Negative) 01/02/18 22:59 Urine WBC (Auto) < 1.0 /HPF (0.0-6.0) 01/02/18 22:59 Urine RBC (Auto) 2.0 /HPF (0.0-6.0) 01/02/18 22:59 U Epithel Cells (Auto) < 1.0 /HPF (0-13.0) 01/02/18 22:59 Urine Opiates Screen Presumptive negative 01/02/18 22:59 Urine Methadone Screen Presumptive negative 01/02/18 22:59 Ur Barbiturates Screen Presumptive negative 01/02/18 22:59 Ur Phencyclidine Scrn Presumptive negative 01/02/18 22:59 Ur Amphetamines Screen Presumptive negative 01/02/18 22:59 U Benzodiazepines Scrn Presumptive negative 01/02/18 22:59 Urine Cocaine Screen Presumptive negative 01/02/18 22:59 U Marijuana (THC) Screen Presumptive negative 01/02/18 22:59 Drugs of Abuse Note Disclamer 01/02/18 22:59
--- NOTE | 2018-01-07 12:39 | Discharge Summary ---
Providers - Providers Date of Admission: 01/06/18 14:10 Date of discharge: 01/07/18 Attending physician: ELIZABET YOUNG 01/03/18 05:45 Occupational Therapy Evaluate and Treat [CONS] Routine Comment: Reason For Exam: Neuro deficits Physical Therapy Evaluation and Treat [CONS] Routine Comment: Reason For Exam: Neuro deficits 01/03/18 09:31 Consult to Physician [CONS] Stat Consulting Provider: JOHN CASE Reason For Exam: Left Carotid Dissection Notified:: yes If yes, spoke with:: Dr. Case Time called:: 08:21 01/03/18 12:41 Consult to Physician [CONS] Routine Consulting Provider: ERNA FITCH Reason For Exam: Acute stroke, ?left carotid dissection Place consult to:: Dr Fitch Notified:: Francia Phone number called:: [phone] Was contact made?: No Time called:: 13:33 Comment:: left message Primary care physician: HERBER BAIRD Hospitalization Condition: Stable Hospital course: Patient is a 62-year-old woman with a history of hypertension and tobacco dependency who presented to [facility] ED with altered mental status (first visit here ), she was out the window of TPA per ED physician documentation CT head w/o contrast reported as No acute intracranial hemorrhage. Ill-defined hypodense lesions of bilateral anterior limb internal capsules most likely represent subacute versus chronic infarcts. CTA head reported as Normal CT angiogram of the brain. No evidence of arterial stenosis, thrombosis, or aneurysm. CTA neck Bilateral 10-20 percent stenoses of both proximal internal carotid arteries by eccentric calcific plaque formation. 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 Distal to this the artery is unremarkable. Bilateral patent vertebral arteries with the left being dominant. No evidence of lymphadenopathy or acute process in the neck otherwise. Carotid Bilateral duplex reported as <50% STENOSIS NOTED BILAT BY DOPPLER VELOCITIES. BILAT ANTEG VERT FLOWS. POSSIBLE ULCERATIVE PLAQUE NOTED IN LT. PX ICA. -Acute cerebral infarct: Consult neurology, ordered MRI brain -Left carotid artery dissection: Discussed with vascular surgeon, treated with IV heparin -Acute metabolic encephalopathy as above -Tobacco dependency: Treated with nicotine patch MRI brain w/o contrast reported as Restricted diffusion in the left frontal lobe , centrum semiovale, and james radiata with extending into the insular cortex about the sylvian fissure with possible mild extension in to the left basal ganglia. Findings concerning for acute ischemia/infarction. No abnormal gradient or T1 signal intensity seen to suggest acute hemorrhage. Subtle linear areas of high attenuation seen on T1 weighted imaging felt to represent artifact rather than subtle hemorrhage, can be re-evaluated on followup examination. Patchy subcortical and periventricular white matter disease also probably involving the basal ganglia likely chronic small vessel ischemic change and/or lacunes. Small area of abnormal T2 weighted signal intensity in the right midbrain/regina may be volume averaging, prominent perivascular space, or small lacune. This can also be re-evaluated on followup exam. Partial empty sella." continue iv heparin per Vascular, repeat CTA neck next week, hold off on Coumadin just yet, discussed with Dr. Hayes Subacute Placement most likely==>patient refusing placement Disposition: DC/TX- HOME [facility] Time spent for discharge: 37 minutes Core Measure Documentation - Palliative Care Palliative Care/ Comfort Measures: Not Applicable - Core Measures Any of the following diagnoses?: stroke - VTE Discharge Requirements Deep Vein Thrombosis/Pulmonary Embolism Present on Admission: No Has pt received <5 days of overlap therapy or INR<2.0: No Anticoagulant overlap therapy prescribed at discharge: No Contraindication No Overlap Therapy order at DC: Not Indicated - Stroke Discharge Requirements Statin for LDL = or >70 mg/dl on DC: Yes Anticoag for atrial fib/atrial flutter: Not Applicable Reason for no anticoag for AF/F on DC: Not Indicated Antithrombotic for ischemic stroke: Yes Exam - Physical Exam Narrative exam: GEN: WDWN, NAD, AWAKE, ALERT, ORIENTATED 0, repeat "I don't know"over and over HEENT: NCAT, EOMI, PERRL, OP Clear NECK: supple, no adenopathy, no thyromegaly, no JVD CVS/HEART: RRR, NORMAL S1S2, pulses present bilaterally CHEST/LUNGS: CTA B, Symmetrical chest expansion, good air entry bilaterally GI/Abdomen: soft, NTND, good bowel sounds, no guarding or rebound /Bladder: no suprapubic tenderness, no CVA or paraspinal tenderness EXT/Skin: no c/c/e, no obvious rash MSK: Moving all limbs 4 Neuro: CN 2-12 grossly intact, expressive aphasia, follow some commands Psych: calm - Constitutional Vitals: Temp Pulse Resp BP Pulse Ox 98.3 F 76 18 120/76 98 01/07/18 12:28 01/07/18 12:28 01/07/18 12:28 01/07/18 12:28 01/07/18 12:28 Plan Activity: no driving until cleared by PCP, up only with assistance, other (no strenous activity) Diet: low salt Follow up with: HERBER BAIRD MD [Primary Care Provider] - 3-5 Days JOHN CASE MD [Staff Physician] - 7 Days NASRIN COCHRAN MD [Staff Physician] - 7 Days Prescriptions: Rosuvastatin (Nf) [Crestor] 20 mg PO QHS #30 tablet Aspirin [Aspirin TAB] 325 mg PO QDAY #30 tablet
== END 2018-01-07 20:48 | disposition home or self-care (01) | DRG 64 ==
LOC: ED 22:15 → 3A 01-03 05:45 → 4A 01-03 09:55 → OBSVTOIN 01-06 14:10
PROVIDERS: ADMIT Internal Medicine Geriatric Medicine; ATTEND Internal Medicine
DX: I63.9 Cerebral infarction, unspecified (principal); G93.41 Metabolic encephalopathy; I77.71 Dissection of carotid artery; F17.200 Nicotine dependence, unspecified, uncomplicated; I10 Essential (primary) hypertension; R47.01 Aphasia; Z82.49 Family history of ischemic heart disease and other diseases of the circulatory system; Z80.9 Family history of malignant neoplasm, unspecified; I65.22 Occlusion and stenosis of left carotid artery; Z53.29 Procedure and treatment not carried out because of patient's decision for other reasons
CPT/HCPCS: 36415; 70450; 70496; 70498; 70551; 80053; 80061; 80307; 81001; 82306; 82607; 82728; 82747; 82962; 83036; 83550; 84443; 84484; 85014; 85018; 85025; 85049; 85520; 85610; 85670; 85730; 93005; 93010; 93306; 93880; G0378; J0360; J1644; Q9967